=== PATIENT | male | born 1940 | race Caucasian/White ===

== ENCOUNTER 2017-03-21 19:00 | Observation (INO) | payer OTHER, MEDICARE ==
[~2017-03-21] VITALS: Ht 167.6 cm; Wt 70.3 kg
--- NOTE | 2017-03-21 19:08 | NUR ---
76 YEAR OLD MALE BIBA FROM HOME AFTER EPISODE OF WEAKNESS TRYING TO GET INTO BED. PT REPORTS HISTORY OF TIA WITH RIGHT SIDED WEAKNESS. PT DENIES FALL STATES HE LOWERED HIMSELF NEXT TO THE BED, DENIES HEADSTRIKE, REPORTS TAKING PLAVIX DAILY AFTER TIA. PT ARRIVES TO ED ALERT AND ORIENTED X3 WITH CLEAR SPEECH. PLACED ON CM NOTED TO BE NSR IN THE 80'S.
--- NOTE | 2017-03-21 19:28 | ED GENERAL ADULT ---
History of Present Illness General Chief Complaint: Syncope and Near-Syncope Stated Complaint: BIBA NEAR SYCOPE Source: patient Exam Limitations: no limitations Vital Signs & Intake/Output Vital Signs & Intake/Output Vital Signs Date Time Temp Pulse Resp B/P B/P Pulse O2 O2 Flow FiO2 Mean Ox Delivery Rate 03/23 0016 97.9 62 20 122/74 92 Room Air 03/22 1719 98.0 65 18 138/80 93 03/22 1316 68 166/90 03/22 1200 98.3 68 19 166/90 93 Room Air ED Intake and Output 03/23 0000 03/22 1200 Intake Total 1160 250 Output Total 800 100 Balance 360 150 Intake, IV 0 Intake, Oral 1160 250 Number 1 0 Bowel Movements Output, Urine 800 100 Triage Note: 76 YEAR OLD MALE BREONNA FROM HOME AFTER EPISODE OF WEAKNESS TRYING TO GET INTO BED. PT REPORTS HISTORY OF TIA WITH RIGHT SIDED WEAKNESS. PT DENIES FALL STATES HE LOWERED HIMSELF NEXT TO THE BED, DENIES HEADSTRIKE, REPORTS TAKING PLAVIX DAILY AFTER TIA. PT ARRIVES TO ED ALERT AND ORIENTED X3 WITH CLEAR SPEECH. PLACED ON CM NOTED TO BE NSR IN THE 80'S. Triage Nurses Notes Reviewed? yes Onset: Just prior to arrival Duration: gone now Timing: remote history Injury Environment: home Severity: moderate No Modifying Factors: none HPI: Patient is a 76-year-old male with history of atrial fibrillation, TIA presenting to the emergency department with chief complaint of sudden onset of weakness of the right arm and right leg that happened after he woke up from a nap this evening around 5 PM. He reports as soon as he noticed that his arm and leg were weak he decided to call the ambulance for evaluation at the hospital. Patient denies any shortness of breath chest pain or palpitations during this episode. No visual changes. He does report weakness to the right leg and right upper extremity. He was unable to ambulate. History of similar symptoms in the past and he felt like he was having a stroke. Denies any nausea or vomiting. No fevers or chills. No recent illness. Denies any recent change in medications. Patient does not take any daily aspirin but does take Plavix daily. Denies any abdominal pain. Denies any urinary incontinence or retention. Has been feeling well otherwise. Reports that symptoms resolved prior to arrival to the hospital. Symptoms lasted about 45 minutes to an hour. Denies any trouble swallowing. No trouble speaking. (ANNE ALTMAN) Allergies Coded Allergies: Alpha 2 Adrenergic Agonist (kidney issues 03/21/17) Reconcile Medications Acetaminophen (Acetaminophen ER) 650 MG TABLET.ER 1 TAB PO PRN PAIN (Reported ) Aspirin (Ecotrin*) 81 MG TABLET.DR 1 TAB PO DAILY STROKE PREVENTION Atorvastatin Calcium 20 MG TABLET 1 TAB PO DAILY CHOLESTEROL (Reported) Cholecalciferol (Vitamin D3) (Vitamin D) (Unknown Strength) TABLET (Unknown Dose) PO DAILY SUPPLEMENT (Reported) Citalopram Hydrobromide (Citalopram HBr) 10 MG TABLET 1 TAB PO DAILY MENTAL HEALTH (Reported) Clopidogrel Bisulfate (Clopidogrel) 75 MG TABLET 1 TAB PO DAILY BLOOD THINNER (Reported) Dutasteride (Avodart) 0.5 MG CAPSULE 1 CAP PO DAILY PROSTATE (Reported) Folic Acid 1 MG TABLET 1 TAB PO DAILY SUPPLEMENT (Reported) Losartan Potassium 25 MG TABLET 1 TAB PO DAILY BP (Reported) Pantoprazole Sodium 40 MG TABLET.DR 1 TAB PO DAILY GI (Reported) Solifenacin Succinate (Vesicare) 10 MG TABLET 1 TAB PO DAILY BLADDER ( Reported) Terazosin HCl 1 MG CAPSULE 1 CAP PO QPM PROSTATE (Reported) Vitamin B Complex (B Complete) 1 EACH TABLET 1 TAB PO DAILY SUPPLEMENT ( Reported) (NICK VARGAS,GOLDEN Cesar) Past History Travel History Traveled to [place] past 21 day No Medical History Any Pertinent Medical History? see below for history Cardiovascular: hypertension, hyperlipidemia Gastrointestinal: GERD Surgical History Surgical History: non-contributory Psychosocial History What is your primary language Estonian Tobacco Use: Never used Family History Hx Contributory? No (ANNE ALTMAN) Review of Systems Review of Systems Constitutional: Reports: weakness. Comments Review of systems: See HPI, All other systems negative. Constitutional, no chills fever or weight loss HEENT: No visual changes no sore throat no congestion Cardiovascular: No chest pain ,palpitation , orthopnea or ankle swelling Skin, no jaundice no rashes Respiratory: No dyspnea cough sputum or hemoptysis GI: No nausea no vomiting : No dysuria No hematuria Muscle skeletal: no back pain, no neck pain, Neurologic: No numbness no confusion NO LEWIS Psych: No stress anxiety or depression,. Heme/endocrine: No bruising no bleeding no polyuria or polydipsia Immunology: No splenectomy or history of AIDS (ANNE ALTMAN) Physical Exam Physical Exam General Appearance: well developed/nourished, no apparent distress, alert, awake , comfortable Comments: Well-developed well-nourished person in no acute distress HEENT: Normal EENT exam, extraocular motion intact, no nystagmus. Pupils equally round and reactive to light and accommodation. Nose is atraumatic. External auditory canal and Tympanic membranes clear. Pharynx normal. No swelling or edema. No neglect noted. Neck: Supple, no lymphadenopathy, normal range of motion without pain or tenderness Back: Nontender, no CVA tenderness. Full range of motion Cardiovascular: Regular rate and rhythms no murmurs rubs or gallops, normal JVP. Unable to appreciate any carotid bruits on auscultation. Respiratory: Chest nontender. No respiratory distress.breath sounds clear to auscultation bilaterally Abdomen: Soft, nontender nondistended, no appreciable organomegaly. Normal bowel sounds. No ascites Extremity: No edema, no calf tenderness to palpation, normal and equal pulses. Full range of motion of upper and lower extremities without difficulties or pain. Link Machine Operator strength is equal and symmetric bilaterally. Muscular strength is 5 out of 5 in upper and lower extremities. No arm drift noted. Neuro: Alert oriented x3, motor sensory normal, cranial nerves II through XII grossly intact. Cerebellar testing is unremarkable. Finger to nose testing unremarkable. Rapid alternating hand movements unremarkable. Patellar reflexes are 2+ bilaterally. Skin: No appreciable rash on exposed skin, skin is warm and dry. Psych: Mood and affect is normal, memory and judgment is normal. Core Measures ACS in differential dx? Yes CVA/TIA Diagnosis: Yes NIH Stroke Scale: Total 0 Severe Sepsis Present: No Septic Shock Present: No (ANNE ALTMAN) Progress Differential Diagnoses I considered the following diagnoses in my evaluation of the patient: TIA, CVA, electrolyte abnormality, ACS, intracranial hemorrhage, hypoglycemia, hyperglycemia Plan of Care: Orders Procedure Date/time Status House Staff 03/23 0813 Active BASIC ELECTROLYTES PLUS BUN&CR 03/23 0600 Complete ELECTROENCEPHALOGRAM 03/22 1506 Active Theraputic Activities 15 Min 03/22 UNK Complete MOBILITY D/C STATUS 03/22 UNK Complete MOBILITY GOAL STATUS 03/22 UNK Complete MOBILITY CURRENT STATUS 03/22 UNK Complete Gait Training, 15 Min 03/22 UNK Complete PT EVAL LOW COMPLEX 20 MIN 03/22 UNK Complete Anticipated Discharge 03/22 UNK Active Current Medications Sig/Akhil Start time Last Medication Dose Stop Time Status Admin Aspirin 81 MG DAILY 03/23 0700 AC 03/23 (Aspirin) 0756 Doxazosin Mesylate 0.5 MG AT BEDTIME 03/22 2200 AC 03/22 (Cardura) 2048 Acetaminophen 650 MG Q6P PRN 03/22 1330 AC 03/22 (Tylenol) 1329 Omeprazole 40 MG DAILY AC 03/22 1320 AC 03/23 (Prilosec) 0627 Cholecalciferol 2,000 IU DAILY 03/22 1000 AC 03/22 (Vitamin D) 1316 Citalopram 10 MG DAILY 03/22 1000 AC 03/22 Hydrobromide 1316 (Celexa) Clopidogrel Bisulfate 75 MG DAILY 03/22 1000 AC 03/22 (Plavix) 1316 Folic Acid 1 MG DAILY 03/22 1000 AC 03/22 (Folic Acid) 1316 Losartan Potassium 25 MG DAILY 03/22 1000 AC 03/22 (Cozaar) 1316 Oxybutynin Chloride 5 MG DAILY 03/22 1000 AC 03/22 (Ditropan) 1315 Heparin Sodium 5,000 UNIT Q8 03/22 0600 AC 03/23 (Porcine) 0627 Atorvastatin Calcium 80 MG 1700 03/22 0045 AC 03/22 (Lipitor) 1645 Laboratory Tests 03/23/17 0630: Anion Gap 8, Estimated GFR 37 L, BUN/Creatinine Ratio 15.6 Diagnostic Imaging: Viewed by Me: CT Scan. Discussed w/RAD: CT Scan. Radiology Impression: PATIENT: MARY RAYMOND PRESENT AGE: 76 PATIENT ACCOUNT NO: [id number] : 38 LOCATION: [facility] ORDERING PHYSICIAN: ANNE JIMENEZ SERVICE DATE: 03/21/17 EXAM TYPE: CAT - CT HEAD WO IV CONTRAST EXAMINATION: CT HEAD WITHOUT CONTRAST CLINICAL INFORMATION: Sudden onset right-sided weakness. COMPARISON: None. TECHNIQUE: Contiguous axial imaging was performed from the skull base to vertex without intravenous contrast. DLP: 399 mGy-cm. FINDINGS: The study is motion limited. There is no evidence of acute intracranial hemorrhage or territorial infarction. No abnormal mass effect or midline shift is seen. Landa to white matter differentiation is well preserved. No extra-axial fluid collections are identified. No hydrocephalus. Proportional prominence of the ventricles and sulcal spaces is consistent with mild volume loss. There is no abnormal attenuation within the brain parenchyma. The osseous structures and soft tissues are normal. The mastoid air cells and visualized portions of the paranasal sinuses are well aerated. IMPRESSION: No acute intracranial pathology. Mild volume loss DICTATED BY: GENNY VARGAS,CARLOS DATE/TIME DICTATED:03/21/172018 TEACHING MANAGER:AMRITA DATE/TIME TRANSCRIBED:03/21/172018 CONFIDENTIAL, DO NOT COPY WITHOUT APPROPRIATE AUTHORIZATION. CXR Impression: PATIENT: MARY RAYMOND PRESENT AGE: 76 PATIENT ACCOUNT NO: [id number] : 38 LOCATION: [facility] ORDERING PHYSICIAN: ANNE JIMENEZ SERVICE DATE: 03/21/17 EXAM TYPE: RAD - XRY- PORTABLE CHEST XRAY EXAMINATION: XR PORTABLE CHEST CLINICAL INFORMATION: Weakness. COMPARISON: 09/25/2013 TECHNIQUE: Portable frontal view of the chest was obtained. FINDINGS: Cardiac leads overlie the chest. The lungs are well expanded. Minimal atelectasis at the left base. No pleural effusion or dense consolidation. No pneumothorax. The cardiomediastinal silhouette is unchanged, with a calcified aorta. IMPRESSION: Minimal left basilar atelectasis. Otherwise clear lungs. DICTATED BY: GENNY VARGAS,CARLOS DATE/TIME DICTATED:03/21/172046 Initial ED EKG: ATRIAL FIBRILLATION AT 82 BPM Prior EKG: changed (HAS HX OF AFIB) Comments: PT will be admitted for telemetry observation for TIA rule out CVA. Patient will need MRI in the morning. Asymptomatic at this time still. Patient on Plavix. Holding aspirin dose at this time. patient passed his swallow study. Able to sip then liquids without choking or gagging. (ALISE JIMENEZ,ANNE) Comments: 03/21/2017 10:09:46 PM patient's case discussed by me with Dr. Christine. (NICK VARGAS,GOLDEN Cesar) Departure Departure Time of Disposition: 2237 Condition: Stable Referrals: MICKIE VARGAS,DEANDRA Gary (PCP/Family) Departure Forms: Customer Survey General Discharge Information (ANNE ALTMAN) Departure Disposition: STILL A PATIENT Clinical Impression Primary Impression: TIA (transient ischemic attack) Qualifiers: Transient cerebral ischemia type: unspecified Qualified Code: G45.9 - Transient cerebral ischemic attack, unspecified Prescriptions: Current Visit Scripts Aspirin (Ecotrin*) 1 TAB PO DAILY #30 TAB Observation Note Spoke With: ASHLEY ANTUNEZ MD Physician Advisor Notified: GOLDEN ALEXANDRA DO Place Patient In: Non-ED OBS Care Area Rationale for Observation: My rational for observation is as follows this patient appears to have suffered at least a TIA if not a CVA. He states he is having right sided weakness that resulted in a fall prior to arrival. I feel this makes this patient a poor candidate for outpatient management, to place him at high risk of falling with subsequent injury. I feel he requires hospitalization to investigate reversible causes of his TIA including carotid disease and cardioembolic phenomenon. To this regard the patient will require continuous cardiac monitoring for the possibility of dysrhythmia such as atrial fibrillation/flutter. In addition I feel this patient should have modification of his medications and consultation by a neurologist.. PA/TESTING PROJECTS ADMINISTRATOR Co-Sign Statement Statement: ED Attending supervision documentation- [X] I saw and evaluated the patient. I have also reviewed all the pertinent lab results and diagnostic results. I agree with the findings and the plan of care as documented in the PA's/TESTING PROJECTS ADMINISTRATOR's documentation. [] I have reviewed the ED Record and agree with the PA's/TESTING PROJECTS ADMINISTRATOR's documentation. [] Additions or exceptions (if any) to the PAs/TESTING PROJECTS ADMINISTRATOR's note and plan are summarized below: [] (NICK VARGAS,GOLDEN Cesar) Critical Care Note Critical Care Note Critical Care Time: 30-74 min (ANNE ALTMAN)
--- NOTE | 2017-03-21 19:35 | NUR ---
IV ACCESS ESTABLISHED BY MARCIO PRESSLEY #20 , LABS DRAWN ADN SENT (SST, FUNK, LAV, BLUE)
[2017-03-21 19:44] LABS: ABSOLUTE BASOPHIL COUNT 0.1 /CUMM (0.0-0.2); ABSOLUTE EOSINOPHIL COUNT 0.5 /CUMM (0.0-0.7); ABSOLUTE GRANULOCYTE CT 5.9 /CUMM (1.4-6.5); ABSOLUTE LYMPH COUNT 1.1 /CUMM (1.2-3.4); ABSOLUTE MONOCYTE COUNT 0.8 /CUMM (0.10-0.60); BASOPHIL % 0.9 % (0.0-2.0); EOSINOPHIL % 5.9 % (0-5); GRANULOCYTE % 70.6 % (42.2-75.2); MEAN CORPUSCULAR HGB 29.4 PG (27.0-31.0); MEAN CORPUSCULAR HGB CONC 33.1 G/DL (33.0-37.0); MEAN CORPUSCULAR VOLUME 88.8 FL (80.0-94.0); MEAN PLATELET VOLUME 8.5 FL (7.4-10.4); PLATELET COUNT 210 /CUMM (130-400); RBC DISTRIBUTION WIDTH 13.9 % (11.5-14.5); RED BLOOD CELL CT 4.39 /CUMM (4.70-6.10); WHITE BLOOD CELL COUNT 8.4 /CUMM (4.8-10.8)
[2017-03-21 19:54] LABS: PT 11.2 SEC (9.4-12.5); PTT 29 SEC (25-37)
--- NOTE | 2017-03-21 20:02 | NUR ---
PT TO CT SCAN VIA STRETCHER
--- NOTE | 2017-03-21 20:23 | CT SCAN REPORT ---
EXAMINATION: CT HEAD WITHOUT CONTRAST CLINICAL INFORMATION: Sudden onset right-sided weakness. COMPARISON: None. TECHNIQUE: Contiguous axial imaging was performed from the skull base to vertex without intravenous contrast. DLP: 399 mGy-cm. FINDINGS: The study is motion limited. There is no evidence of acute intracranial hemorrhage or territorial infarction. No abnormal mass effect or midline shift is seen. Landa to white matter differentiation is well preserved. No extra-axial fluid collections are identified. No hydrocephalus. Proportional prominence of the ventricles and sulcal spaces is consistent with mild volume loss. There is no abnormal attenuation within the brain parenchyma. The osseous structures and soft tissues are normal. The mastoid air cells and visualized portions of the paranasal sinuses are well aerated. IMPRESSION: No acute intracranial pathology. Mild volume loss
--- NOTE | 2017-03-21 20:53 | RADIOLOGY REPORT ---
EXAMINATION: XR PORTABLE CHEST CLINICAL INFORMATION: Weakness. COMPARISON: 09/25/2013 TECHNIQUE: Portable frontal view of the chest was obtained. FINDINGS: Cardiac leads overlie the chest. The lungs are well expanded. Minimal atelectasis at the left base. No pleural effusion or dense consolidation. No pneumothorax. The cardiomediastinal silhouette is unchanged, with a calcified aorta. IMPRESSION: Minimal left basilar atelectasis. Otherwise clear lungs.
--- NOTE | 2017-03-21 20:57 | NUR ---
DR ROMERO IN FOR EVAL
[2017-03-21] MEDS ORDERED: ATORVASTATIN CA20 M1 PO (21:09)
[2017-03-21] MEDS ORDERED: LEVOTHYROXINE50 MCG PO (21:09)
[2017-03-21] MEDS ORDERED: VESICARE10 MG PO (21:09)
[2017-03-21] MEDS ORDERED: CITALOPRAM HBR10 MG PO (21:09)
[2017-03-21] MEDS ORDERED: FOLIC ACID1 M1 PO (21:10)
[2017-03-21] MEDS ORDERED: CLOPIDOGREL75 M1 PO (21:10)
[2017-03-21] MEDS ORDERED: PANTOPRAZOLE SO40 M1 PO (21:10)
[2017-03-21] MEDS ORDERED: AVODART0.5 M1 PO (21:11)
[2017-03-21] MEDS ORDERED: LOSARTAN POTASS25 M1 PO (21:11)
[2017-03-21] MEDS ORDERED: TERAZOSIN HCL1 M1 PO (21:11)
[2017-03-21] MEDS ORDERED: VITAMIN D2000 UNI1 PO (21:11)
[2017-03-21] MEDS ORDERED: B COMPLETE1 EACH PO (21:12)
[2017-03-21] MEDS ORDERED: ACETAMINOPHEN650 M3 PO (21:12)
--- NOTE | 2017-03-21 22:07 | NUR ---
PT RESTING IN RM WITH RR, PLAYING ON CELL PHONE, WILL CONTINUE TO MONITOR.
--- NOTE | 2017-03-21 23:07 | History & Physical ---
DEIDRALucaKHOIBELIA 03/21/17 8686: General Information and HPI MD Statement: I have seen and personally examined MARY RAYMOND and documented this H&P. The patient is a 76 year old M who presented with a patient stated chief complaint of [tia]. Source of Information: patient Exam Limitations: no limitations History of Present Illness: This is a 76-year-old male, previous smoker, nonalcoholic, no illicit drug abuse , past medical history of ?atrial fibrillation, TIA, hypothyroidism, hypertension,gerd was brought in by ambulance today with chief complaint of sudden onset of weakness of the right arm and leg that happened after he woke up from a nap this evening around 5 PM. He noted that his right arm and leg were weak, and when he tried to walk his right leg gave away, and he fell on the ground, he dragged himself closer to the phone, could not get up, and called the EMS who came in and brought him to the [facility]. he denied any loss of consciousness, any palpitations, loss of bowel or bladder incontinence, any abnormal movement, however he did notice that his right upper extremity and right leg were extremely weak, the weakness lasted for about 3-4 hours, when we saw the patient and weakness had improved. He denied any trouble with speech, any headache, any nausea or vomiting, any drooping of the face. He said that he takes Plavix daily instead of aspirin, and he was put on Plavix for his atrial fibrillation as well as aspirin after one episode of previous TIA. He denied any trouble swallowing and passed a bedside swallow. Allergies/Medications Allergies: Coded Allergies: Alpha 2 Adrenergic Agonist (kidney issues 03/21/17) Home Med list Acetaminophen (Acetaminophen ER) 650 MG TABLET.ER 1 TAB PO PRN PAIN (Reported ) Aspirin (Ecotrin*) 81 MG TABLET.DR 1 TAB PO DAILY STROKE PREVENTION Atorvastatin Calcium 20 MG TABLET 1 TAB PO DAILY CHOLESTEROL (Reported) Cholecalciferol (Vitamin D3) (Vitamin D) (Unknown Strength) TABLET (Unknown Dose) PO DAILY SUPPLEMENT (Reported) Citalopram Hydrobromide (Citalopram HBr) 10 MG TABLET 1 TAB PO DAILY MENTAL HEALTH (Reported) Clopidogrel Bisulfate (Plavix) 75 MG TABLET 1 TAB PO DAILY STROKE PREVENTION PLEASE TAKE FOR 7 DAYS ONLY AND THEN STOP Dutasteride (Avodart) 0.5 MG CAPSULE 1 CAP PO DAILY PROSTATE (Reported) Folic Acid 1 MG TABLET 1 TAB PO DAILY SUPPLEMENT (Reported) Losartan Potassium 25 MG TABLET 1 TAB PO DAILY BP (Reported) Pantoprazole Sodium 40 MG TABLET.DR 1 TAB PO DAILY GI (Reported) Solifenacin Succinate (Vesicare) 10 MG TABLET 1 TAB PO DAILY BLADDER ( Reported) Terazosin HCl 1 MG CAPSULE 1 CAP PO QPM PROSTATE (Reported) Vitamin B Complex (B Complete) 1 EACH TABLET 1 TAB PO DAILY SUPPLEMENT ( Reported) Compliance With Home Meds: FAIR Past History Travel History Traveled to [place] past 21 day No Medical History Cardiovascular: hypertension, hyperlipidemia Gastrointestinal: GERD Surgical History Surgical History: non-contributory Past Family/Social History Psychosocial History Where do you live? Home Who Do You Live With? spouse Primary Language: Swiss Smoking Status: Former Smoker ETOH Use: occasional use Illicit Drug Use: denies illicit drug use Functional Ability ADLs Independent: dressing, eating, toileting, bathing. Ambulation: walker IADLs Independent: shopping, housework, finances, food prep, telephone, transportation , medication admin. Review of Systems Review of Systems Constitutional: Reports: malaise, weakness. Denies: chills, diaphoresis, fever, unexplained weight loss. EENTM: Denies: blurred vision, double vision, visual changes, eye pain, eye drainage. Cardiovascular: Denies: chest pain, edema, orthopena, palpitations, peripheral edema, syncope. Respiratory: Denies: cough, hemoptysis, orthopnea, short of breath, sputum production. GI: Denies: abdominal pain, bloating, constipation, diarrhea. Genitourinary: Denies: discharge, dysuria, frequency, hematuria. Musculoskeletal: Denies: back pain, gout, joint pain, joint swelling. Skin: Denies: cysts, change in skin color, change in hair/nails, dryness. Neurological/Psychological: Reports: see HPI. Hematologic/Endocrine: Reports: no symptoms. Immunologic/Allergic: Reports: see HPI. All Other Systems: Reviewed and Negative Comments patient complained of right upper and lower extremity weakness Exam & Diagnostic Data Last 24 Hrs of Vital Signs/I&O Vital Signs Date Time Temp Pulse Resp B/P B/P Pulse O2 O2 Flow FiO2 Mean Ox Delivery Rate 03/21 2340 Room Air 03/21 2340 98.2 85 18 138/78 94 Room Air 03/21 2301 98.7 70 18 130/69 96 Nasal 2.0L Cannula 03/21 2124 97.5 87 20 123/58 97 Nasal 2.0L Cannula 03/21 1922 98 Nasal 2.0L Cannula 03/21 1902 97.2 86 18 124/60 93 Room Air Room Air Intake & Output 03/22 0800 03/22 0000 03/21 1600 Intake Total Output Total Balance Patient 70.307 kg Weight Physical Exam General Appearance Alert, Oriented X3, Cooperative, No Acute Distress Skin No Rashes, No Breakdown, No Significant Lesion Skin Temp/Moisture Exam: Cool/Dry Sepsis Skin Exam (color): Normal for Ethnicity HEENT Atraumatic, PERRLA, EOMI Neck Supple, No JVD, No thryomegaly Lymphatic no lad Cardiovascular Normal S1, Normal S2, irregularly irregular Lungs Clear to Auscultation, Normal Air Movement Abdomen Normal Bowel Sounds, Soft, No Tenderness Neurological Normal Speech, Normal Tone, Sensation Intact, Cranial Nerves 3-12 NL, Reflexes 2+, strength reduced in b/l le 3+/5 but thsi is not new, RUE strength 4+/5 and LUE strength normal. Extremities No Clubbing, No Cyanosis, No Edema, Normal Pulses Vascular Normal Pulses Last 24 Hrs of Labs/Bryce: Laboratory Tests 03/21/172029: Urine Color YEL, Urine Clarity CLEAR, Urine pH 5.5, Ur Specific [place] 1.025, Urine Protein TRACE H, Urine Ketones NEG, Urine Nitrite NEG, Urine Bilirubin NEG, Urine Urobilinogen 0.2, Ur Leukocyte Esterase NEG, Ur Microscopic SEDIMENT EXAMINED, Urine RBC RARE, Urine Bacteria FEW H, Hyaline Casts 15-25 H, Urine Hemoglobin NEG, Urine Glucose NEG 03/21/171933: Anion Gap 11, Estimated GFR 34 L, BUN/Creatinine Ratio 14.7, Glucose 111 H, Calcium 9.2, Total Bilirubin 0.7, AST 25, ALT 22, Alkaline Phosphatase 92, Troponin I 0.02, Total Protein 5.9 L, Albumin 3.3 L, Globulin 2.6, Albumin/ Globulin Ratio 1.3, TSH 0.710, Free T4 0.92, PT 11.2, INR 1.07, APTT 29, CBC w Diff NO MAN DIFF REQ, RBC 4.39 L, MCV 88.8, MCH 29.4, RDW 13.9, MPV 8.5, Gran % 70.6, Lymphocytes % 12.8 L, Monocytes % 9.8 H, Eosinophils % 5.9 H, Basophils % 0.9, Absolute Granulocytes 5.9, Absolute Lymphocytes 1.1 L, Absolute Monocytes 0.8 H, Absolute Eosinophils 0.5, Absolute Basophils 0.1, PUBS MCHC 33.1 Diagnostic Data EKG Results Atrial fibrillation, rate of 82 CXR Results X-ray showed minimal left basilar atelectasis otherwise no cardiac or pulmonary findings. Other Results Head CT was negative for any acute infarcts, mild volume loss present. Assessment/Plan Assessment: In summary this is a 76-year-old male, previous smoker, nonalcoholic, no illicit drug abuse with past medical history of atrial fibrillation and cooperative, TIA previously, hypothyroidism, hypertension, GERD who was brought in from ambulance today with chief complaint of sudden onset of weakness of the right arm and leg that appeared after he woke up after a nap at 5 PM, lasted for 3-4 hours and resolved completely without any slurring of speech, headache, chest pain, palpitations. It is worthwhile to note that patient has baseline bilateral lower extremity weakness, and now the weakness is back to baseline. Vitals on admission : temperature of 97.2, pulse of 86, blood pressure 124/60, respiration of 18, he was 93% saturating on room air, was put on 2 L nasal cannula. EKG showed atrial fibrillation at 82 bpm. Chest x-ray did not show any acute cardiopulmonary findings. CT head was negative for any acute changes. UA was negative for any infection. Relevant labs white count of 9.4, H/H of 12.9/39.0, BUN and creatinine 28/1.9 ( baseline creatinine), glucose of 111. Troponin I 0.02. Plan list along with assessment and plan. Problem #1 suspected TIA. Problem #2 history of atrial fibrillation. Problem #3 history of hypothyroidism. Problem #4 history of depression. Problem #5 history of hyperlipidemia. * Pt came in with weakness of the right upper arm and right lower leg, which resolved after few hours, there is a suspicion for TIA, patient has had previous TIA. 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 Bernal which was positive, no surgery was pursued for the closure of the shunt. He said that he also had a PATRICK previously however we do not have any records. Patient had atrial fibrillation and was initially put on aspirin but then was changed to clopidogrel. * we will admit the patient to telemetry floor for suspected TIA. * Continue monitoring vitals every shift, continue to monitor intakes and output , continue cardiac telemetry monitoring. * Atrial fibrillation rate is under control. * CT head was negative. * MRI brain in the morning to rule out any infarct. * Carotid bilateral Doppler to rule out atherosclerosis. * Patient passed bedside swallow eval. * Neurology consult in the a.m. * His blood pressure is within normal limit, no hypertension noticed, however if the blood pressure goes high we will allow permissive hypertension. * Will resume the blood pressure medications from tomorrow. * High dose statin. * Patient received one time of 325 mg aspirin. * continue clopidogrel per cardio, patient doesnt need ASA as he is on clopidogrel,pleaseclarify if he needs baby aspirin daily. * Lipid panel in am * Recheck TFT's * Ct terazosin * ct MV, folic acid as per home meds. * ct levothyroxine 0.05mcg PT is FC regular diet DVT px heparin Mild, mod, severe PP. As Ranked By This Provider Problem List: 1. TIA (transient ischemic attack) Qualifiers Transient cerebral ischemia type: unspecified Qualified Code: G45.9 - Transient cerebral ischemic attack, unspecified Core Measures/Miscellaneous Acute Coronary Syndrome ACS Diagnosis: No Cerebrovascular Accident CVA/TIA Diagnosis: Yes NIH Stroke Scale: Total 0 Date Last Known Well: 03/22/17 Time Last Known Well: 1700 Neurological S/S of CVA: Right Hemiparesis Symptom Start Date: 03/22/17 Symptom Start Time: 1700 Bedside Swallow Eval Done: Yes Result of Evaluation: Pass Antithrombotic: No AFIB: Atrial Fibrillation Aflutter: No Anticoagulant: Yes LDL Assessed Within 24 Hours: Yes Currently on Statin: Yes Rehab Needs Assessed: Medical Eval for Rehab PT Consult Ordered: Yes Congestive Heart Failure CHF Diagnosis: No Venous Thromboembolism VTE Risk Factors: Age > 40 No [facility] VTE prophylaxis d/t: No contraindications No VTE Pharm Prophylaxis d/t: No contraindications VTE Diagnosis: No VTE Type: NONE VTE Confirmed by (Test): NONE Severe Sepsis Severe Sepsis Present: No Septic Shock Septic Shock Present: No Miscellaneous Documentation Attending Case Discussed With: ASHLEY ANTUNEZ MD Primary Care Physician: DEANDRA CORADO MD Patient sees these Specialists .. Level of Patient Care: Telemetry ABHIJIT ANTUNEZ MD 03/22/17 0549: Attending Review Statement Attending Statement Attending MD Statement: examined this patient, discuss w/resident/PA/RADIOLOGY THERAPIST, agreed w/resident/PA/RADIOLOGY THERAPIST Attending Assessment/Plan: 76 yo M with h/o Afib not on AC, TIA (2003), hypothyroidism, HTN, GERD, CKD stage 3B, Ebstein's anomaly, chronic eosinophillia, is here with sudden onset right sided weakness causing him to fall without head strike or LOC. He denies slurring of speech or facial droop. No tingling or numbness. He reports that the weakness has resolved. He does have left sided sciatica pain. He also reports weakness to bilateral LE due to which he has difficulty ambulating. 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 VSS. Neuro exam: speech clear, tongue is central, no pronator drift, sensation intact, no facial droop, cranial nerves intact, power 4/5 in the RUE, 3/5 in b/l LE, reflexes 2+, finger to nose test negative, no dysdiadochokinesia. Gait not assessed. Labs: eosinophillia, BUN 28, creat 1.9, trop neg, TSH/ free T4 normal. UA neg. CT head neg. CXR: atelectasis. EKG: Afib. Echo (2003): EF 67%, impaired LV relaxation. 1. TIA, rule out CVA. Tele 23 Obs, neurochecks, continue plavix, add aspirin and high dose statin, check lipid panel, HbA1c, obtain echo, carotid doppler, MRI, Neuro and cardio consult, PT/OT eval. Rule out ACS. Of note, patient has h/o Ebstein's anomaly and had a PATRICK which showed a shunt please obtain records from Dr. Bernal's office. Patient passed bedside swallow eval. Also note, that patient was not placed on aspirin previously due to h/o melena with aspirin (per Neuro note of 2003), however patient does not recall this. Please discuss with Neuro. DVT ppx Hep SC. Full code.
--- NOTE | 2017-03-21 23:20 | NUR ---
REPORT GIVEN TO HUAN DIAMOND ON TELE, THIS RN ASKED FOR A TECH FOR TRANSPORT DUE TO CENCUS OF PT IN ED
[2017-03-21 23:40] VITALS: BP 138/78
[2017-03-22 08:00] VITALS: BP 142/80
--- NOTE | 2017-03-22 08:00 | NUR ---
PT A/OX3; NIH STROKE SCALE 0 AT THIS TIME; IV INTACT WITH SOME BLEEDING; THIS RN CHANGED THE DRESSING; ATE 50% OF BREAKFEST; DENIES PAIN; THIS RN GAVE REPORT TO HUAN DE DIOS AT 0930.
--- NOTE | 2017-03-22 08:18 | PN- Housestaff ---
Subjective Follow-up For: tia Subjective: Seen and examined at bedside. Reports improvement in upper and lower extremity strength. No acute o/n event reported including telemetry episode. Review of Systems Constitutional: Reports: no symptoms. Objective Last 24 Hrs of Vital Signs/I&O Vital Signs Date Time Temp Pulse Resp B/P B/P Pulse O2 O2 Flow FiO2 Mean Ox Delivery Rate 03/22 1719 98.0 65 18 138/80 93 03/22 1316 68 166/90 03/22 1200 98.3 68 19 166/90 93 Room Air 03/22 0800 98.6 62 18 142/80 93 Room Air 03/21 2340 Room Air 03/21 2340 98.2 85 18 138/78 94 Room Air 03/21 2301 98.7 70 18 130/69 96 Nasal 2.0L Cannula 03/21 2124 97.5 87 20 123/58 97 Nasal 2.0L Cannula Intake & Output 03/22 1600 03/22 0800 03/22 0000 Intake Total 560 250 Output Total 100 Balance 560 150 Intake, IV 0 Intake, Oral 560 250 Number 0 Bowel Movements Output, Urine 100 Patient 70.307 kg Weight Physical Exam General Appearance: Alert, Oriented X3, Cooperative Other Physical Findings: Skin No Rashes, No Breakdown, No Significant Lesion Skin Temp/Moisture Exam: Cool/Dry Sepsis Skin Exam (color): Normal for Ethnicity HEENT Atraumatic, PERRLA, EOMI Neck Supple, No JVD, No thryomegaly Lymphatic no lad Cardiovascular Normal S1, Normal S2, irregularly irregular Lungs Clear to Auscultation, Normal Air Movement Abdomen Normal Bowel Sounds, Soft, No Tenderness Neurological Normal Speech, Normal Tone, Sensation Intact, Cranial Nerves 3-12 NL, Reflexes 2+, strength reduced in b/l le 3+/5 but thsi is not new, RUE strength 5 and LUE strength normal. Extremities No Clubbing, No Cyanosis, No Edema, Normal Pulses Vascular Normal Pulses Current Medications: Current Medications Sig/Akhil Start time Last Medication Dose Route Stop Time Status Admin Acetaminophen 500 MG Q6P PRN 03/22 1330 DC PO Acetaminophen 650 MG Q6P PRN 03/22 1330 AC 03/22 PO 1329 Aspirin 325 MG ONCE ONE 03/22 0015 DC 03/22 PO 03/22 0016 0100 Atorvastatin Calcium 20 MG DAILY 03/22 1000 DC PO Atorvastatin Calcium 80 MG 1700 03/22 0045 AC 03/22 PO 1645 Atorvastatin Calcium 80 MG DAILY 03/22 0015 DC PO Cholecalciferol 2,000 IU DAILY 03/22 1000 AC 03/22 PO 1316 Citalopram 10 MG DAILY 03/22 1000 AC 03/22 Hydrobromide PO 1316 Clopidogrel Bisulfate 75 MG DAILY 03/22 1000 AC 03/22 PO 1316 Doxazosin Mesylate 0.5 MG AT BEDTIME 03/22 2200 AC PO Doxazosin Mesylate 1 MG DAILY 03/22 1000 DC PO Folic Acid 1 MG DAILY 03/22 1000 AC 03/22 PO 1316 Heparin Sodium 5,000 UNIT Q8 03/22 0600 AC 03/22 (Porcine) SC 1320 Levothyroxine Sodium 0.05 MG DAILY AC 03/22 0700 DC PO Losartan Potassium 25 MG DAILY 03/22 1000 AC 03/22 PO 1316 Omeprazole 40 MG DAILY AC 03/22 1320 AC 03/22 PO 1329 Oxybutynin Chloride 5 MG DAILY 03/22 1000 AC 03/22 PO 1315 Last 24 Hrs of Lab/Bryce Results Last 24 Hrs of Labs/Mics: Laboratory Tests 03/22/17 0630: Anion Gap 9, Estimated GFR 34 L, BUN/Creatinine Ratio 15.3, Triglycerides 117, Cholesterol 139, LDL Cholesterol, Calc 77, HDL Cholesterol 39 L, Cholesterol/ HDL Ratio 4, CBC w Diff NO MAN DIFF REQ, RBC 3.92 L, MCV 89.6, MCH 29.8, RDW 13.9, MPV 9.1, Gran % 59.7, Lymphocytes % 18.9 L, Monocytes % 10.2 H, Eosinophils % 10.6 H, Basophils % 0.6, Absolute Granulocytes 4.8, Absolute Lymphocytes 1.5, Absolute Monocytes 0.8 H, Absolute Eosinophils 0.9, Absolute Basophils 0, PUBS MCHC 33.3 03/21/17 2030: Urine Color YEL, Urine Clarity CLEAR, Urine pH 5.5, Ur Specific [place] 1.025, Urine Protein TRACE H, Urine Ketones NEG, Urine Nitrite NEG, Urine Bilirubin NEG, Urine Urobilinogen 0.2, Ur Leukocyte Esterase NEG, Ur Microscopic SEDIMENT EXAMINED, Urine RBC RARE, Urine Bacteria FEW H, Hyaline Casts 15-25 H, Urine Hemoglobin NEG, Urine Glucose NEG Assessment/Plan Assessment: This is a 76-year-old male, previous smoker, nonalcoholic, no illicit drug abuse with past medical history of atrial fibrillation and cooperative, TIA previously , hypothyroidism, hypertension, GERD who was brought in from ambulance today with chief complaint of sudden onset of weakness of the right arm and leg that appeared after he woke up after a nap at 5 PM, lasted for 3-4 hours and resolved completely without any slurring of speech, headache, chest pain, palpitations. It is worthwhile to note that patient has baseline bilateral lower extremity weakness, and now the weakness is back to baseline. Vitals on admission : temperature of 97.2, pulse of 86, blood pressure 124/60, respiration of 18, he was 93% saturating on room air, was put on 2 L nasal cannula. EKG showed atrial fibrillation at 82 bpm. Chest x-ray did not show any acute cardiopulmonary findings. CT head was negative for any acute changes. UA was negative for any infection. Relevant labs white count of 9.4, H/H of 12.9/39.0, BUN and creatinine 28/1.9 ( baseline creatinine), glucose of 111. Troponin I 0.02. Problem #1 suspected TIA. Problem #2 history of atrial fibrillation. Problem #3 history of hypothyroidism. Problem #4 history of depression. Problem #5 history of hyperlipidemia. Plan Awaiitn neuro input and EEG report to rule out focal seizures. Carotid duppler and CT unremarkable, MRI was not feasible due to kyphotic posture of patient and increased acid reflux, . Pt is medically optimized with high dose statin, dual antiplatelt therapy. Confirmed with PCP and Dr Bernal that pt did not have a hx of a fib. EKG is uneqivocal but does not show afib, also awaiitng echo results.. Will continue all his chronic meds from home. Anticipated discharge tomorrow morning. Problem List: 1. TIA (transient ischemic attack) Pain Ratin Pain Location: [facility] Pain Goal: Remain pain free Pain Plan: PER PAIN PATHWAY Tomorrow's Labs & Rationales: BEP
[2017-03-22 08:23] LABS: ABSOLUTE BASOPHIL COUNT 0 /CUMM (0.0-0.2); ABSOLUTE EOSINOPHIL COUNT 0.9 /CUMM (0.0-0.7); ABSOLUTE GRANULOCYTE CT 4.8 /CUMM (1.4-6.5); ABSOLUTE LYMPH COUNT 1.5 /CUMM (1.2-3.4); ABSOLUTE MONOCYTE COUNT 0.8 /CUMM (0.10-0.60); BASOPHIL % 0.6 % (0.0-2.0); EOSINOPHIL % 10.6 % (0-5); GRANULOCYTE % 59.7 % (42.2-75.2); HEMATOCRIT 35.1 % (42-52); MEAN CORPUSCULAR HGB 29.8 PG (27.0-31.0); MEAN CORPUSCULAR HGB CONC 33.3 G/DL (33.0-37.0); MEAN CORPUSCULAR VOLUME 89.6 FL (80.0-94.0); MEAN PLATELET VOLUME 9.1 FL (7.4-10.4); PLATELET COUNT 186 /CUMM (130-400); RBC DISTRIBUTION WIDTH 13.9 % (11.5-14.5); RED BLOOD CELL CT 3.92 /CUMM (4.70-6.10); WHITE BLOOD CELL COUNT 8.1 /CUMM (4.8-10.8)
--- NOTE | 2017-03-22 10:10 | NUR ---
TO MRI VIA WHEELCHAIR; ALERT ORIENTED X3; NO COMPLAINTS
--- NOTE | 2017-03-22 11:34 | NUR ---
REPORTED BY MAIL HANDLERS SUPERVISOR PATIENT UNABLE TO TOLERATE LAYING FLAT SECONDARY TO SPINE AND GERD. DR ORTIZ NOTIFIED. PATIENT RETURNED, PLACED BACK ON MONITOR. CALL ROMERO IN REACH
--- NOTE | 2017-03-22 11:41 | Cons- Cardiology ---
General Information and HPI Consulting Request Date of Consult: 03/22/17 Requested By: ROMEO ONEAL MD Reason for Consult: Atrial fibrillation/TIA Source of Information: patient, old records History of Present Illness: This is a 76-year-old male, previous smoker, nonalcoholic, no illicit drug abuse , past medical history of atrial fibrillation on clopidogrel, TIA, hypothyroidism, hypertension,gerd was brought in by ambulance today with chief complaint of sudden onset of weakness of the right arm and leg that happened after he woke up from a nap this evening around 5 PM. The patient was seen by his PMD Dr Moreno earlier in the day. According to Dr. Moreno , the patient was fine at that time and the patient confirms this. Also, per Dr. Moreno, the patient was in a regular rhythm at that tinme and all of his prior ECGs have shown NSR with PACs and he knows of no history of prior atrial fibrillation. he denied any loss of consciousness, any palpitations, loss of bowel or bladder come and go, any abnormal movement, however he did notice that his right upper extremity and right leg were extremely weak, the weakness lasted for about 3-4 hours after which when we saw the patient and weakness had improved. He denied any trouble with speech, any headache, any nausea or vomiting, any drooping of the face. He said that he takes Plavix daily instead of aspirin, and he was put on Plavix for his atrial fibrillation as well as aspirin one episode of previous TIA. He denied any trouble swallowing and passed a bedside swallow. Allergies/Medications Allergies: Coded Allergies: Alpha 2 Adrenergic Agonist (kidney issues 03/21/17) Home Med List: Acetaminophen (Acetaminophen ER) 650 MG TABLET.ER 1 TAB PO PRN PAIN (Reported ) Atorvastatin Calcium 20 MG TABLET 1 TAB PO DAILY CHOLESTEROL (Reported) Cholecalciferol (Vitamin D3) (Vitamin D) (Unknown Strength) TABLET (Unknown Dose) PO DAILY SUPPLEMENT (Reported) Citalopram Hydrobromide (Citalopram HBr) 10 MG TABLET 1 TAB PO DAILY MENTAL HEALTH (Reported) Clopidogrel Bisulfate (Clopidogrel) 75 MG TABLET 1 TAB PO DAILY BLOOD THINNER (Reported) Dutasteride (Avodart) 0.5 MG CAPSULE 1 CAP PO DAILY PROSTATE (Reported) Folic Acid 1 MG TABLET 1 TAB PO DAILY SUPPLEMENT (Reported) Losartan Potassium 25 MG TABLET 1 TAB PO DAILY BP (Reported) Pantoprazole Sodium 40 MG TABLET.DR 1 TAB PO DAILY GI (Reported) Solifenacin Succinate (Vesicare) 10 MG TABLET 1 TAB PO DAILY BLADDER ( Reported) Terazosin HCl 1 MG CAPSULE 1 CAP PO QPM PROSTATE (Reported) Vitamin B Complex (B Complete) 1 EACH TABLET 1 TAB PO DAILY SUPPLEMENT ( Reported) Current Medications: Current Medications Sig/Akhil Start time Last Medication Dose Route Stop Time Status Admin Aspirin 325 MG ONCE ONE 03/22 0015 DC 03/22 PO 03/22 0016 0100 Atorvastatin Calcium 20 MG DAILY 03/22 1000 DC PO Atorvastatin Calcium 80 MG 1700 03/22 0045 AC 03/22 PO 0100 Atorvastatin Calcium 80 MG DAILY 03/22 0015 DC PO Cholecalciferol 2,000 IU DAILY 03/22 1000 AC PO Citalopram 10 MG DAILY 03/22 1000 AC Hydrobromide PO Clopidogrel Bisulfate 75 MG DAILY 03/22 1000 AC PO Doxazosin Mesylate 0.5 MG AT BEDTIME 03/22 2200 AC PO Doxazosin Mesylate 1 MG DAILY 03/22 1000 DC PO Folic Acid 1 MG DAILY 03/22 1000 AC PO Heparin Sodium 5,000 UNIT Q8 03/22 0600 AC 03/22 (Porcine) SC 0701 Levothyroxine Sodium 0.05 MG DAILY AC 03/22 0700 DC PO Losartan Potassium 25 MG DAILY 03/22 1000 AC PO Oxybutynin Chloride 5 MG DAILY 03/22 1000 AC PO Past History Travel History Traveled to [place] past 21 day No Medical History Blood Transfusion Hx: No Neurological: NONE EENT: NONE Cardiovascular: hypertension, hyperlipidemia Respiratory: NONE Gastrointestinal: GERD Hepatic: NONE Renal: chronic kidney disease Musculoskeletal: NONE Psychiatric: NONE Endocrine: hypothyroidism Blood Disorders: NONE Cancer(s): NONE 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 Home Who Do You Live With? spouse Primary Language: Setswana Smoking Status: Former Smoker ETOH Use: occasional use Illicit Drug Use: denies illicit drug use Functional Ability ADLs Independent: dressing, eating, toileting, bathing. Ambulation: walker IADLs Independent: shopping, housework, finances, food prep, telephone, transportation , medication admin. Exam & Diagnostic Data Vital Signs and I&O Vital Signs Date Time Temp Pulse Resp B/P B/P Pulse O2 O2 Flow FiO2 Mean Ox Delivery Rate 03/22 800 98.6 62 18 142/80 93 Room Air 03/21 2340 Room Air 03/21 2340 98.2 85 18 138/78 94 Room Air 03/21 2301 98.7 70 18 130/69 96 Nasal 2.0L Cannula 03/21 2124 97.5 87 20 123/58 97 Nasal 2.0L Cannula 03/21 1922 98 Nasal 2.0L Cannula 03/21 1902 97.2 86 18 124/60 93 Room Air Room Air Intake & Output 03/22 0803/22 0000 03/21 1600 03/21 0803/21 0000 Intake Total 250 Output Total 100 Balance 150 Intake, IV 0 Intake, Oral 250 Number 0 Bowel Movements Output, Urine 100 Patient 155 lb Weight Physical Exam: General Appearance Alert, Oriented X3, Cooperative, No Acute Distress Skin Normal HEENT Atraumatic, PERRLA, EOMI Neck Supple, No JVD, No thryomegaly Cardiovascular Normal S1, Normal S2, regular, 1/6 systolic murmur Lungs Clear to Auscultation, Normal Air Movement Abdomen Normal Bowel Sounds, Soft, No Tenderness Neurological Normal Speech, Normal Tone, Sensation Intact, Cranial Nerves 3-12 NL, Reflexes 2+, strength reduced in b/l le 3+/5 but thsi is not new, RUE strength 4+/5 and LUE strength normal. Extremities No Clubbing, No Cyanosis, No Edema, Normal Pulses Vascular Normal Pulses Labs/Bryce Results: Laboratory Tests 03/22 Chemistry Sodium (137 - 145 mmol/L) 136 L Potassium (3.5 - 5.1 mmol/L) 3.8 Chloride (98 - 107 mmol/L) 101 Carbon Dioxide (22 - 30 mmol/L) 25 Anion Gap (5 - 16) 9 BUN (9 - 20 mg/dL) 29 H Creatinine (0.7 - 1.2 mg/dL) 1.9 H Estimated GFR (>60 ml/min) 34 L BUN/Creatinine Ratio (7 - 25 %) 15.3 Triglycerides (<150 mg/dL) 117 Cholesterol (< 200 MG/DL) 139 LDL Cholesterol, Calc (65 - 129 mg/dL) 77 HDL Cholesterol (40 - 60 mg/dL) 39 L Cholesterol/HDL Ratio (0.00 - 4.88 %) 4 Hematology CBC w Diff NO MAN DIFF REQ WBC (4.8 - 10.8 /CUMM) 8.1 RBC (4.70 - 6.10 /CUMM) 3.92 L Hgb (14.0 - 18.0 G/DL) 11.7 L Hct (42 - 52 %) 35.1 L MCV (80.0 - 94.0 FL) 89.6 MCH (27.0 - 31.0 PG) 29.8 RDW (11.5 - 14.5 %) 13.9 Plt Count (130 - 400 /CUMM) 186 MPV (7.4 - 10.4 FL) 9.1 Gran % (42.2 - 75.2 %) 59.7 Lymphocytes % (20.5 - 51.1 %) 18.9 L Monocytes % (1.7 - 9.3 %) 10.2 H Eosinophils % (0 - 5 %) 10.6 H Basophils % (0.0 - 2.0 %) 0.6 Absolute Granulocytes (1.4 - 6.5 /CUMM) 4.8 Absolute Lymphocytes (1.2 - 3.4 /CUMM) 1.5 Absolute Monocytes (0.10 - 0.60 /CUMM) 0.8 H Absolute Eosinophils (0.0 - 0.7 /CUMM) 0.9 Absolute Basophils (0.0 - 0.2 /CUMM) 0 PUBS MCHC (33.0 - 37.0 G/DL) 33.3 Urines Urine Color (YEL,AMB,STR) YEL Urine Clarity (CLEAR) CLEAR Urine pH (5.0 - 8.0) 5.5 Ur Specific [place] (1.001 - 1.035) 1.025 Urine Protein (NEG,<30 MG/DL) TRACE H Urine Ketones (NEG) NEG Urine Nitrite (NEG) NEG Urine Bilirubin (NEG) NEG Urine Urobilinogen (0.1 - 1.0 EU/dl) 0.2 Ur Leukocyte Esterase (NEG) NEG Ur Microscopic SEDIMENT EXAMINED Urine RBC (0 - 5 /HPF) RARE Urine Bacteria (NEG/NONE) FEW H Hyaline Casts (0/LPF) 15-25 H Urine Hemoglobin (NEG) NEG Urine Glucose (N MG/DL) NEG 03/21 1934 Chemistry Sodium (137 - 145 mmol/L) 136 L Potassium (3.5 - 5.1 mmol/L) 4.0 Chloride (98 - 107 mmol/L) 102 Carbon Dioxide (22 - 30 mmol/L) 22 Anion Gap (5 - 16) 11 BUN (9 - 20 mg/dL) 28 H Creatinine (0.7 - 1.2 mg/dL) 1.9 H Estimated GFR (>60 ml/min) 34 L BUN/Creatinine Ratio (7 - 25 %) 14.7 Glucose (65 - 99 mg/dL) 111 H Calcium (8.4 - 10.2 mg/dL) 9.2 Total Bilirubin (0.2 - 1.3 mg/dL) 0.7 AST (17 - 59 U/L) 25 ALT (21 - 72 U/L) 22 Alkaline Phosphatase (< 127 U/L) 92 Troponin I (<0.11 ng/ml) 0.02 Total Protein (6.3 - 8.2 g/dL) 5.9 L Albumin (3.5 - 5.0 g/dL) 3.3 L Globulin (1.9 - 4.2 gm/dL) 2.6 Albumin/Globulin Ratio (1.1 - 2.2 %) 1.3 TSH (0.270 - 4.200 uIU/mL) 0.710 Free T4 (0.78 - 2.44 ng/dL) 0.92 Coagulation PT (9.4 - 12.5 SEC) 11.2 INR (0.90 - 1.17) 1.07 APTT (25 - 37 SEC) 29 Hematology CBC w Diff NO MAN DIFF REQ WBC (4.8 - 10.8 /CUMM) 8.4 RBC (4.70 - 6.10 /CUMM) 4.39 L Hgb (14.0 - 18.0 G/DL) 12.9 L Hct (42 - 52 %) 39.0 L MCV (80.0 - 94.0 FL) 88.8 MCH (27.0 - 31.0 PG) 29.4 RDW (11.5 - 14.5 %) 13.9 Plt Count (130 - 400 /CUMM) 210 MPV (7.4 - 10.4 FL) 8.5 Gran % (42.2 - 75.2 %) 70.6 Lymphocytes % (20.5 - 51.1 %) 12.8 L Monocytes % (1.7 - 9.3 %) 9.8 H Eosinophils % (0 - 5 %) 5.9 H Basophils % (0.0 - 2.0 %) 0.9 Absolute Granulocytes (1.4 - 6.5 /CUMM) 5.9 Absolute Lymphocytes (1.2 - 3.4 /CUMM) 1.1 L Absolute Monocytes (0.10 - 0.60 /CUMM) 0.8 H Absolute Eosinophils (0.0 - 0.7 /CUMM) 0.5 Absolute Basophils (0.0 - 0.2 /CUMM) 0.1 PUBS MCHC (33.0 - 37.0 G/DL) 33.1 Diagnostic Data CXR Results FINDINGS: Cardiac leads overlie the chest. The lungs are well expanded. Minimal atelectasis at the left base. No pleural effusion or dense consolidation. No pneumothorax. The cardiomediastinal silhouette is unchanged, with a calcified aorta. IMPRESSION: Minimal left basilar atelectasis. Otherwise clear lungs. Other Results Head CT: FINDINGS: The study is motion limited. There is no evidence of acute intracranial hemorrhage or territorial infarction. No abnormal mass effect or midline shift is seen. Landa to white matter differentiation is well preserved. No extra-axial fluid collections are identified. No hydrocephalus. Proportional prominence of the ventricles and sulcal spaces is consistent with mild volume loss. There is no abnormal attenuation within the brain parenchyma. The osseous structures and soft tissues are normal. The mastoid air cells and visualized portions of the paranasal sinuses are well aerated. IMPRESSION: No acute intracranial pathology. Mild volume loss Assessment/Plan Assessment/Plan Assessment: 1. TIA with history of prior TIA noted 2. Atrial fibrillation of unclear duration-I discussed the situation with the patient's primary physician Dr. Moreno today. According to Dr. Moreno, the patient was in the office yesterday. At that time, his rate was regular. The patient has not had any history of atrial fibrillation the past. He does have multiple prior ECGs which show sinus rhythm and PACs. 3. 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 -Patient's initial EKG. There is a significant amount of present. The possibility of sinus rhythm with intraventricular occipital up at school." Laboratory, there is no definite evidence of atrial fibrillation. There is frequent atrial ectopy. -In the absence of documented atrial fibrillation, I would be reluctant to institute oral anticoagulation at the present time. I will review the patient's prior outpatient Holter monitors and, if there is no documented AF over the next 24 hours, consider further outpatient monitoring with an event monitor or LINQ monitor to better exclude AF. Consult Acknowledgment - Thank you for your consult request.
[2017-03-22 12:00] VITALS: BP 166/90
--- NOTE | 2017-03-22 12:42 | ULTRASOUND REPORT ---
EXAMINATION: DUPLEX BILATERAL CAROTID ULTRASOUND CLINICAL INFORMATION: TIA COMPARISON: None. TECHNIQUE: Duplex bilateral carotid US was performed using real-time ultrasound and Doppler techniques (integrating B-mode 2D vascular images, Doppler spectral analysis and color flow Doppler imaging). These techniques were utilized to interrogate the extracranial carotid and vertebral arteries bilaterally. The degree of stenosis is based off criteria similar to NASCET. FINDINGS: 1. On the right: Plaque is present at the carotid bifurcation but velocity measurements are normal and do not suggest a stenosis of greater than 50% diameter reduction in the right ICA. Velocities in the distal ICA are slightly elevated at 174 cm/s which could be due to tortuosity. The right ECA demonstrates a mild stenosis with peak systolic velocity of under 200 cm/s. The vertebral artery is patent demonstrating antegrade flow. 2. On the left: Plaque is present at the carotid bifurcation but velocity measurements are normal and do not suggest a stenosis of greater than 50% diameter reduction in the left ICA. The left external carotid artery shows no significant stenosis. The vertebral artery is patent demonstrating antegrade flow. IMPRESSION: Plaque is present in the internal carotid arteries but velocity measurements are normal and there is no evidence to suggest a hemodynamically significant stenosis of greater than 50% diameter reduction.
--- NOTE | 2017-03-22 14:08 | PN- Att Addend ---
Attending Addendum Attending Brief Note Patient seen and examined, was feeling slightly better this morning but still had weakness in the right lower extremity. Vital Signs Date Time Temp Pulse Resp B/P B/P Pulse O2 O2 Flow FiO2 Mean Ox Delivery Rate 03/22 1316 68 166/90 03/22 1200 98.3 68 19 166/90 93 Room Air 03/22 0800 98.6 62 18 142/80 93 Room Air 03/21 2340 Room Air 03/21 2340 98.2 85 18 138/78 94 Room Air 03/21 2301 98.7 70 18 130/69 96 Nasal 2.0L Cannula 03/21 2124 97.5 87 20 123/58 97 Nasal 2.0L Cannula 03/21 1922 98 Nasal 2.0L Cannula 03/21 1902 97.2 86 18 124/60 93 Room Air Room Air on exam; aox3, nad. cv; s1,s2, irregular. resp; clear abd; soft, nt, bs+ ext; no edema. Laboratory Tests 03/22 03/21 0630 2030 Chemistry Sodium (137 - 145 mmol/L) 136 L Potassium (3.5 - 5.1 mmol/L) 3.8 Chloride (98 - 107 mmol/L) 101 Carbon Dioxide (22 - 30 mmol/L) 25 Anion Gap (5 - 16) 9 BUN (9 - 20 mg/dL) 29 H Creatinine (0.7 - 1.2 mg/dL) 1.9 H Estimated GFR (>60 ml/min) 34 L BUN/Creatinine Ratio (7 - 25 %) 15.3 Triglycerides (<150 mg/dL) 117 Cholesterol (< 200 MG/DL) 139 LDL Cholesterol, Calc (65 - 129 mg/dL) 77 HDL Cholesterol (40 - 60 mg/dL) 39 L Cholesterol/HDL Ratio (0.00 - 4.88 %) 4 Hematology CBC w Diff NO MAN DIFF REQ WBC (4.8 - 10.8 /CUMM) 8.1 RBC (4.70 - 6.10 /CUMM) 3.92 L Hgb (14.0 - 18.0 G/DL) 11.7 L Hct (42 - 52 %) 35.1 L MCV (80.0 - 94.0 FL) 89.6 MCH (27.0 - 31.0 PG) 29.8 RDW (11.5 - 14.5 %) 13.9 Plt Count (130 - 400 /CUMM) 186 MPV (7.4 - 10.4 FL) 9.1 Gran % (42.2 - 75.2 %) 59.7 Lymphocytes % (20.5 - 51.1 %) 18.9 L Monocytes % (1.7 - 9.3 %) 10.2 H Eosinophils % (0 - 5 %) 10.6 H Basophils % (0.0 - 2.0 %) 0.6 Absolute Granulocytes (1.4 - 6.5 /CUMM) 4.8 Absolute Lymphocytes (1.2 - 3.4 /CUMM) 1.5 Absolute Monocytes (0.10 - 0.60 /CUMM) 0.8 H Absolute Eosinophils (0.0 - 0.7 /CUMM) 0.9 Absolute Basophils (0.0 - 0.2 /CUMM) 0 PUBS MCHC (33.0 - 37.0 G/DL) 33.3 Urines Urine Color (YEL,AMB,STR) YEL Urine Clarity (CLEAR) CLEAR Urine pH (5.0 - 8.0) 5.5 Ur Specific [place] (1.001 - 1.035) 1.025 Urine Protein (NEG,<30 MG/DL) TRACE H Urine Ketones (NEG) NEG Urine Nitrite (NEG) NEG Urine Bilirubin (NEG) NEG Urine Urobilinogen (0.1 - 1.0 EU/dl) 0.2 Ur Leukocyte Esterase (NEG) NEG Ur Microscopic SEDIMENT EXAMINED Urine RBC (0 - 5 /HPF) RARE Urine Bacteria (NEG/NONE) FEW H Hyaline Casts (0/LPF) 15-25 H Urine Hemoglobin (NEG) NEG Urine Glucose (N MG/DL) NEG 03/21 1934 Chemistry Sodium (137 - 145 mmol/L) 136 L Potassium (3.5 - 5.1 mmol/L) 4.0 Chloride (98 - 107 mmol/L) 102 Carbon Dioxide (22 - 30 mmol/L) 22 Anion Gap (5 - 16) 11 BUN (9 - 20 mg/dL) 28 H Creatinine (0.7 - 1.2 mg/dL) 1.9 H Estimated GFR (>60 ml/min) 34 L BUN/Creatinine Ratio (7 - 25 %) 14.7 Glucose (65 - 99 mg/dL) 111 H Calcium (8.4 - 10.2 mg/dL) 9.2 Total Bilirubin (0.2 - 1.3 mg/dL) 0.7 AST (17 - 59 U/L) 25 ALT (21 - 72 U/L) 22 Alkaline Phosphatase (< 127 U/L) 92 Troponin I (<0.11 ng/ml) 0.02 Total Protein (6.3 - 8.2 g/dL) 5.9 L Albumin (3.5 - 5.0 g/dL) 3.3 L Globulin (1.9 - 4.2 gm/dL) 2.6 Albumin/Globulin Ratio (1.1 - 2.2 %) 1.3 TSH (0.270 - 4.200 uIU/mL) 0.710 Free T4 (0.78 - 2.44 ng/dL) 0.92 Coagulation PT (9.4 - 12.5 SEC) 11.2 INR (0.90 - 1.17) 1.07 APTT (25 - 37 SEC) 29 Hematology CBC w Diff NO MAN DIFF REQ WBC (4.8 - 10.8 /CUMM) 8.4 RBC (4.70 - 6.10 /CUMM) 4.39 L Hgb (14.0 - 18.0 G/DL) 12.9 L Hct (42 - 52 %) 39.0 L MCV (80.0 - 94.0 FL) 88.8 MCH (27.0 - 31.0 PG) 29.4 RDW (11.5 - 14.5 %) 13.9 Plt Count (130 - 400 /CUMM) 210 MPV (7.4 - 10.4 FL) 8.5 Gran % (42.2 - 75.2 %) 70.6 Lymphocytes % (20.5 - 51.1 %) 12.8 L Monocytes % (1.7 - 9.3 %) 9.8 H Eosinophils % (0 - 5 %) 5.9 H Basophils % (0.0 - 2.0 %) 0.9 Absolute Granulocytes (1.4 - 6.5 /CUMM) 5.9 Absolute Lymphocytes (1.2 - 3.4 /CUMM) 1.1 L Absolute Monocytes (0.10 - 0.60 /CUMM) 0.8 H Absolute Eosinophils (0.0 - 0.7 /CUMM) 0.5 Absolute Basophils (0.0 - 0.2 /CUMM) 0.1 PUBS MCHC (33.0 - 37.0 G/DL) 33.1 A/P; 76 y/o M with pmh sig for TIA, hypothyroidism, hypertension,gerd is on tele OBS wioth tia. There is a question of atrial fibrillation. EKG is not very clear. Carotid ultrasound does not show any evidence of significant stenosis. Patient unfortunately could not have an MRI done secondary to kyphosis. Neurologic evaluation is still pending. Echo results are pending. Patient has been started on statin as well as kept on Plavix. Should ask neurology if additionalantiplatelet agent is indicated. If patient does have atrial fibrillation then he will require anticoagulation. DVT px; hep sq. PT eval. will extend OBS/
--- NOTE | 2017-03-22 14:19 | PN- Student ---
Subjective Subjective: Pt was observed at the bedside lying comfortably and was alert and cooperative during the interview. He denies weakness in his right arm or leg and has no other associated symptoms to report. Objective Objective: Vitals BP 166/90 RR 19 P 68 T 98.3 Sat 93 General: Lying comfortably in his bed. NAD. 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 EOMI. PERRLA. Cardiac: Normal S1S2, no mrg. 2+ peripheral pulses. No evidence of carotid bruits. Pulm: CTA bl. Normal AP diameter. Neuro: Normal sensation and strength testing. CN III-XII intact. Results Results: Laboratory Tests 03/22/17 0630: Anion Gap 9, Estimated GFR 34 L, BUN/Creatinine Ratio 15.3, Triglycerides 117, Cholesterol 139, LDL Cholesterol, Calc 77, HDL Cholesterol 39 L, Cholesterol/ HDL Ratio 4, CBC w Diff NO MAN DIFF REQ, RBC 3.92 L, MCV 89.6, MCH 29.8, RDW 13.9, MPV 9.1, Gran % 59.7, Lymphocytes % 18.9 L, Monocytes % 10.2 H, Eosinophils % 10.6 H, Basophils % 0.6, Absolute Granulocytes 4.8, Absolute Lymphocytes 1.5, Absolute Monocytes 0.8 H, Absolute Eosinophils 0.9, Absolute Basophils 0, PUBS MCHC 33.3 03/21/17 2030: Urine Color YEL, Urine Clarity CLEAR, Urine pH 5.5, Ur Specific [place] 1.025, Urine Protein TRACE H, Urine Ketones NEG, Urine Nitrite NEG, Urine Bilirubin NEG, Urine Urobilinogen 0.2, Ur Leukocyte Esterase NEG, Ur Microscopic SEDIMENT EXAMINED, Urine RBC RARE, Urine Bacteria FEW H, Hyaline Casts 15-25 H, Urine Hemoglobin NEG, Urine Glucose NEG 03/21/17 1934: Anion Gap 11, Estimated GFR 34 L, BUN/Creatinine Ratio 14.7, Glucose 111 H, Calcium 9.2, Total Bilirubin 0.7, AST 25, ALT 22, Alkaline Phosphatase 92, Troponin I 0.02, Total Protein 5.9 L, Albumin 3.3 L, Globulin 2.6, Albumin/ Globulin Ratio 1.3, TSH 0.710, Free T4 0.92, PT 11.2, INR 1.07, APTT 29, CBC w Diff NO MAN DIFF REQ, RBC 4.39 L, MCV 88.8, MCH 29.4, RDW 13.9, MPV 8.5, Gran % 70.6, Lymphocytes % 12.8 L, Monocytes % 9.8 H, Eosinophils % 5.9 H, Basophils % 0.9, Absolute Granulocytes 5.9, Absolute Lymphocytes 1.1 L, Absolute Monocytes 0.8 H, Absolute Eosinophils 0.5, Absolute Basophils 0.1, PUBS MCHC 33.1 Assessment/Plan Assessment: Pt is a 76 yo WM nonsmoker and nonalcoholic with a PMHx of HTN, Afib, TIA, and hypothyroidism who presented to the ED with suddent onset right arm and leg weakness. His symptoms resolved spontaneously in 3-4 hours and his weakness has now returned to baseline. CT head negative for any acute infarcts EKG Afib rate of 82 CXR negative for cardiopulmonary findings UA negative Na 136 BUN/Cr 29/1.9 1. TIA Likely given sudden onset of r arm and leg weakness and spontaneous resolution of symptoms. Negative CT head rules against a stroke. Plan: W/u with MRI as it is more sensitive for infarts. Carotid doppler to investigate atherosclerotic causes of TIA. Echocardiogram to r/o heart defects leading to embolic TIA especially in the setting of Afib. Consider dual antiplatelet therapy with the addition of ASA. Begin statin therapy. 2. CKD Stage 3 Elevated Cr confirms Stage 3 CKD. Plan: Avoid nephrotoxic agents. Serial creatinine to monitor kidney function. 3. Afib Pt's initial EKG displayed rate of 82. Plan: serial EKGs to monitor for rate changes.
--- NOTE | 2017-03-22 15:45 | Cons- Neurology ---
General Information and HPI Consulting Request Date of Consult: 03/22/17 Requested By: ROMEO ONEAL MD Source of Information: patient, old records Exam Limitations: no limitations History of Present Illness: 76-year-old male admitted to hospital yesterday after event that happened in the early evening while at home and that he was alone. He noted that his right leg gave out and he fell to the ground. As this happened he also noted that the right upper extremity showed involuntary movement. He was able to crawl to the telephone and called 911. He was unable to open the door and the police was able to Pick the lock. There was no head trauma and he did not feel confused. Symptoms lasted for quite a few hours. He believes at present a house return to previous status. He is a left-handed individual. He did not develop any difficulty with speech. There was no reported headache abdominal upset. He recalls that he may have had a similar episode over 10 years ago Allergies/Medications Allergies: Coded Allergies: Alpha 2 Adrenergic Agonist (kidney issues 03/21/17) Home Med List: Acetaminophen (Acetaminophen ER) 650 MG TABLET.ER 1 TAB PO PRN PAIN (Reported ) Atorvastatin Calcium 20 MG TABLET 1 TAB PO DAILY CHOLESTEROL (Reported) Cholecalciferol (Vitamin D3) (Vitamin D) (Unknown Strength) TABLET (Unknown Dose) PO DAILY SUPPLEMENT (Reported) Citalopram Hydrobromide (Citalopram HBr) 10 MG TABLET 1 TAB PO DAILY MENTAL HEALTH (Reported) Clopidogrel Bisulfate (Clopidogrel) 75 MG TABLET 1 TAB PO DAILY BLOOD THINNER (Reported) Dutasteride (Avodart) 0.5 MG CAPSULE 1 CAP PO DAILY PROSTATE (Reported) Folic Acid 1 MG TABLET 1 TAB PO DAILY SUPPLEMENT (Reported) Losartan Potassium 25 MG TABLET 1 TAB PO DAILY BP (Reported) Pantoprazole Sodium 40 MG TABLET.DR 1 TAB PO DAILY GI (Reported) Solifenacin Succinate (Vesicare) 10 MG TABLET 1 TAB PO DAILY BLADDER ( Reported) Terazosin HCl 1 MG CAPSULE 1 CAP PO QPM PROSTATE (Reported) Vitamin B Complex (B Complete) 1 EACH TABLET 1 TAB PO DAILY SUPPLEMENT ( Reported) Current Medications: Current Medications Sig/Akhil Start time Last Medication Dose Route Stop Time Status Admin Acetaminophen 500 MG Q6P PRN 03/22 1330 DC PO Acetaminophen 650 MG Q6P PRN 03/22 1330 AC 03/22 PO 1329 Aspirin 325 MG ONCE ONE 03/22 0015 DC 03/22 PO 03/22 0016 0100 Atorvastatin Calcium 20 MG DAILY 03/22 1000 DC PO Atorvastatin Calcium 80 MG 1700 03/22 0045 AC 03/22 PO 0100 Atorvastatin Calcium 80 MG DAILY 03/22 0015 DC PO Cholecalciferol 2,000 IU DAILY 03/22 1000 AC 03/22 PO 1316 Citalopram 10 MG DAILY 03/22 1000 AC 03/22 Hydrobromide PO 1316 Clopidogrel Bisulfate 75 MG DAILY 03/22 1000 AC 03/22 PO 1316 Doxazosin Mesylate 0.5 MG AT BEDTIME 03/22 2200 AC PO Doxazosin Mesylate 1 MG DAILY 03/22 1000 DC PO Folic Acid 1 MG DAILY 03/22 1000 AC 03/22 PO 1316 Heparin Sodium 5,000 UNIT Q8 03/22 0600 AC 03/22 (Porcine) SC 1320 Levothyroxine Sodium 0.05 MG DAILY AC 03/22 0700 DC PO Losartan Potassium 25 MG DAILY 03/22 1000 AC 03/22 PO 1316 Omeprazole 40 MG DAILY AC 03/22 1320 AC 03/22 PO 1329 Oxybutynin Chloride 5 MG DAILY 03/22 1000 AC 03/22 PO 1315 Review of Systems Review of Systems: Denies headache, vertigo, diplopia, speech difficulty, dysphagia, chest pain, shortness of breath, vomiting, swelling, fever, incontinence. He usually walks with a Rollator. 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 Home Who Do You Live With? spouse Primary Language: Greenlandic Smoking Status: Former Smoker ETOH Use: occasional use Illicit Drug Use: denies illicit drug use Functional Ability ADLs Independent: dressing, eating, toileting, bathing. Ambulation: walker IADLs Independent: shopping, housework, finances, food prep, telephone, transportation , medication admin. Exam & Diagnostic Data Vital Signs and I&O Vital Signs Date Time Temp Pulse Resp B/P B/P Pulse O2 O2 Flow FiO2 Mean Ox Delivery Rate 03/22 1316 68 166/90 03/22 1200 98.3 68 19 166/90 93 Room Air 03/22 0800 98.6 62 18 142/80 93 Room Air 03/21 2340 Room Air 03/21 2340 98.2 85 18 138/78 94 Room Air 03/21 2301 98.7 70 18 130/69 96 Nasal 2.0L Cannula 03/214 97.5 87 20 123/58 97 Nasal 2.0L Cannula 03/21 1922 98 Nasal 2.0L Cannula 03/21 190 97.2 86 18 124/60 93 Room Air Room Air Intake & Output 03/22 1600 03/22 0800 03/22 0000 Intake Total 560 250 Output Total 100 Balance 560 150 Intake, IV 0 Intake, Oral 560 250 Number 0 Bowel Movements Output, Urine 100 Patient 155 lb Weight Mother had myocardial infarction Alert and oriented language functions fund of knowledge attention span concentration intact He is comfortable Heart sounds normal, no carotid bruits, distal pulses intact Extraocular movements full, but pupil asymmetric following surgery, visual mariscal intact, fundi benign, no facial weakness or facial sensory loss, palate tongue and shoulders intact, hearing mildly impaired Normal tone and strength upper and lower extremities No sensory loss to light touch or position Deep tendon reflexes 1+ bilateral Coord to functions upper extremities intact Gait assessment deferred due to absence of Rollator, Last 48 Hours of Lab Results: Laboratory Tests 03/22 Chemistry Sodium (137 - 145 mmol/L) 136 L Potassium (3.5 - 5.1 mmol/L) 3.8 Chloride (98 - 107 mmol/L) 101 Carbon Dioxide (22 - 30 mmol/L) 25 Anion Gap (5 - 16) 9 BUN (9 - 20 mg/dL) 29 H Creatinine (0.7 - 1.2 mg/dL) 1.9 H Estimated GFR (>60 ml/min) 34 L BUN/Creatinine Ratio (7 - 25 %) 15.3 Triglycerides (<150 mg/dL) 117 Cholesterol (< 200 MG/DL) 139 LDL Cholesterol, Calc (65 - 129 mg/dL) 77 HDL Cholesterol (40 - 60 mg/dL) 39 L Cholesterol/HDL Ratio (0.00 - 4.88 %) 4 Hematology CBC w Diff NO MAN DIFF REQ WBC (4.8 - 10.8 /CUMM) 8.1 RBC (4.70 - 6.10 /CUMM) 3.92 L Hgb (14.0 - 18.0 G/DL) 11.7 L Hct (42 - 52 %) 35.1 L MCV (80.0 - 94.0 FL) 89.6 MCH (27.0 - 31.0 PG) 29.8 RDW (11.5 - 14.5 %) 13.9 Plt Count (130 - 400 /CUMM) 186 MPV (7.4 - 10.4 FL) 9.1 Gran % (42.2 - 75.2 %) 59.7 Lymphocytes % (20.5 - 51.1 %) 18.9 L Monocytes % (1.7 - 9.3 %) 10.2 H Eosinophils % (0 - 5 %) 10.6 H Basophils % (0.0 - 2.0 %) 0.6 Absolute Granulocytes (1.4 - 6.5 /CUMM) 4.8 Absolute Lymphocytes (1.2 - 3.4 /CUMM) 1.5 Absolute Monocytes (0.10 - 0.60 /CUMM) 0.8 H Absolute Eosinophils (0.0 - 0.7 /CUMM) 0.9 Absolute Basophils (0.0 - 0.2 /CUMM) 0 PUBS MCHC (33.0 - 37.0 G/DL) 33.3 Urines Urine Color (YEL,AMB,STR) YEL Urine Clarity (CLEAR) CLEAR Urine pH (5.0 - 8.0) 5.5 Ur Specific [place] (1.001 - 1.035) 1.025 Urine Protein (NEG,<30 MG/DL) TRACE H Urine Ketones (NEG) NEG Urine Nitrite (NEG) NEG Urine Bilirubin (NEG) NEG Urine Urobilinogen (0.1 - 1.0 EU/dl) 0.2 Ur Leukocyte Esterase (NEG) NEG Ur Microscopic SEDIMENT EXAMINED Urine RBC (0 - 5 /HPF) RARE Urine Bacteria (NEG/NONE) FEW H Hyaline Casts (0/LPF) 15-25 H Urine Hemoglobin (NEG) NEG Urine Glucose (N MG/DL) NEG 03/21 1934 Chemistry Sodium (137 - 145 mmol/L) 136 L Potassium (3.5 - 5.1 mmol/L) 4.0 Chloride (98 - 107 mmol/L) 102 Carbon Dioxide (22 - 30 mmol/L) 22 Anion Gap (5 - 16) 11 BUN (9 - 20 mg/dL) 28 H Creatinine (0.7 - 1.2 mg/dL) 1.9 H Estimated GFR (>60 ml/min) 34 L BUN/Creatinine Ratio (7 - 25 %) 14.7 Glucose (65 - 99 mg/dL) 111 H Calcium (8.4 - 10.2 mg/dL) 9.2 Total Bilirubin (0.2 - 1.3 mg/dL) 0.7 AST (17 - 59 U/L) 25 ALT (21 - 72 U/L) 22 Alkaline Phosphatase (< 127 U/L) 92 Troponin I (<0.11 ng/ml) 0.02 Total Protein (6.3 - 8.2 g/dL) 5.9 L Albumin (3.5 - 5.0 g/dL) 3.3 L Globulin (1.9 - 4.2 gm/dL) 2.6 Albumin/Globulin Ratio (1.1 - 2.2 %) 1.3 TSH (0.270 - 4.200 uIU/mL) 0.710 Free T4 (0.78 - 2.44 ng/dL) 0.92 Coagulation PT (9.4 - 12.5 SEC) 11.2 INR (0.90 - 1.17) 1.07 APTT (25 - 37 SEC) 29 Hematology CBC w Diff NO MAN DIFF REQ WBC (4.8 - 10.8 /CUMM) 8.4 RBC (4.70 - 6.10 /CUMM) 4.39 L Hgb (14.0 - 18.0 G/DL) 12.9 L Hct (42 - 52 %) 39.0 L MCV (80.0 - 94.0 FL) 88.8 MCH (27.0 - 31.0 PG) 29.4 RDW (11.5 - 14.5 %) 13.9 Plt Count (130 - 400 /CUMM) 210 MPV (7.4 - 10.4 FL) 8.5 Gran % (42.2 - 75.2 %) 70.6 Lymphocytes % (20.5 - 51.1 %) 12.8 L Monocytes % (1.7 - 9.3 %) 9.8 H Eosinophils % (0 - 5 %) 5.9 H Basophils % (0.0 - 2.0 %) 0.9 Absolute Granulocytes (1.4 - 6.5 /CUMM) 5.9 Absolute Lymphocytes (1.2 - 3.4 /CUMM) 1.1 L Absolute Monocytes (0.10 - 0.60 /CUMM) 0.8 H Absolute Eosinophils (0.0 - 0.7 /CUMM) 0.5 Absolute Basophils (0.0 - 0.2 /CUMM) 0.1 PUBS MCHC (33.0 - 37.0 G/DL) 33.1 Imaging/Other Studies: carotid u/s: IMPRESSION: Plaque is present in the internal carotid arteries but velocity measurements are normal and there is no evidence to suggest a hemodynamically significant stenosis of greater than 50% diameter reduction. CT BRAIN: IMPRESSION: No acute intracranial pathology. Mild volume loss Assessment/Plan Assessment: Transient neurologic event, ischemia versus focal seizure Recommendations: Antiplatelet agent and statin If patient found to have atrial fibrillation, consider anticoagulation Electroencephalogram to assess for possibility of focal seizure Patient was unable to do MRI scan due to body habitus Consult Acknowledgment - Thank you for your consult request.
[2017-03-22 17:19] VITALS: BP 138/80
--- NOTE | 2017-03-22 18:25 | ELECTROENCEPHALOGRAM REPORT ---
Electroencephalogram Report Electroencephalogram Results Date of service: 03/22/17 Attending MD: ROMEO ONEAL MD Sr. Director: Jolynn Leavitt EEG Number: [id number] Test Utilizes: 10-20 system, 21 lead 18 channel digital recording Pertinent Hx/Physical/Neuro Findings/Clin Diagnosis: shaking right arm r/o seizure Inpatient Medications: Current Medications Sig/Akhil Start time Last Medication Dose Route Stop Time Status Admin Acetaminophen 500 MG Q6P PRN 03/22 1330 DC PO Acetaminophen 650 MG Q6P PRN 03/22 1330 AC 03/22 PO 1329 Aspirin 325 MG ONCE ONE 03/22 0015 DC 03/22 PO 03/22 0016 0100 Atorvastatin Calcium 20 MG DAILY 03/22 1000 DC PO Atorvastatin Calcium 80 MG 1700 03/22 0045 AC 03/22 PO 1645 Atorvastatin Calcium 80 MG DAILY 03/22 0015 DC PO Cholecalciferol 2,000 IU DAILY 03/22 1000 AC 03/22 PO 1316 Citalopram 10 MG DAILY 03/22 1000 AC 03/22 Hydrobromide PO 1316 Clopidogrel Bisulfate 75 MG DAILY 03/22 1000 AC 03/22 PO 1316 Doxazosin Mesylate 0.5 MG AT BEDTIME 03/22 2200 AC PO Doxazosin Mesylate 1 MG DAILY 03/22 1000 DC PO Folic Acid 1 MG DAILY 03/22 1000 AC 03/22 PO 1316 Heparin Sodium 5,000 UNIT Q8 03/22 0600 AC 03/22 (Porcine) SC 1320 Levothyroxine Sodium 0.05 MG DAILY AC 03/22 0700 DC PO Losartan Potassium 25 MG DAILY 03/22 1000 AC 03/22 PO 1316 Omeprazole 40 MG DAILY AC 03/22 1320 AC 03/22 PO 1329 Oxybutynin Chloride 5 MG DAILY 03/22 1000 AC 03/22 PO 1315 Interpretation: In wake state, background is 9-10 cps activity In drowsy state, background is 5-7 cps activity Photic stim: no abnormalities No focal or epileptiform activity Impression: Normal EEG in wake and drowsy states
[2017-03-23 00:16] VITALS: BP 122/74
--- NOTE | 2017-03-23 06:47 | PN- Housestaff ---
ANGEL VARGAS,PRAFUL 03/23/17 0647: Subjective Follow-up For: TIA Subjective: Seen and examined at bedside. He is a very pleasant and cooperative gentleman. He does report feeling a little bit tired today while ambulating to the bathroom but denies any new focal neurological deficit. Ulcer denies any chest pain, palpitation, increased shortness of breath, fever, chills, nausea, vomiting, vision changes, abdominal pain or dysuria. No acute telemetry events noted overnight and no acute nursing report noted. Review of Systems Constitutional: Reports: no symptoms. Objective Last 24 Hrs of Vital Signs/I&O Vital Signs Date Time Temp Pulse Resp B/P B/P Pulse O2 O2 Flow FiO2 Mean Ox Delivery Rate 03/23 0946 74 160/80 03/23 0833 97.6 61 16 161/81 94 Room Air 03/23 0016 97.9 62 20 122/74 92 Room Air 03/22 1719 98.0 65 18 138/80 93 Intake & Output 03/23 1600 03/23 0800 03/23 0000 Intake Total 250 600 Output Total 425 800 Balance -175 -200 Intake, IV 0 Intake, Oral 250 600 Number 0 1 Bowel Movements Output, Urine 425 800 Physical Exam General Appearance: Alert, Oriented X3, Cooperative Other Physical Findings: Neck Supple, No JVD, No thryomegaly Lymphatic no lad Cardiovascular Normal S1, Normal S2, irregularly irregular Lungs Clear to Auscultation, Normal Air Movement Abdomen Normal Bowel Sounds, Soft, No Tenderness Neurological Normal Speech, Normal Tone, Sensation Intact, Cranial Nerves 3-12 NL, Reflexes 2+, strength reduced in b/l le 3+/5 but thsi is not new, RUE strength 5 and LUE strength normal. Extremities No Clubbing, No Cyanosis, No Edema, Normal Pulses Vascular Normal Pulses Current Medications: Current Medications Sig/Akhil Start time Last Medication Dose Route Stop Time Status Admin Acetaminophen 650 MG Q6P PRN 03/22 1330 AC 03/22 PO 1329 Aspirin 81 MG DAILY 03/23 0700 AC 03/23 PO 0756 Atorvastatin Calcium 80 MG 1700 03/22 0045 AC 03/22 PO 1645 Cholecalciferol 2,000 IU DAILY 03/22 1000 AC 03/23 PO 0946 Citalopram 10 MG DAILY 03/22 1000 AC 03/23 Hydrobromide PO 0946 Clopidogrel Bisulfate 75 MG DAILY 03/22 1000 AC 03/23 PO 0946 Doxazosin Mesylate 0.5 MG AT BEDTIME 03/22 2200 AC 03/22 PO 2048 Folic Acid 1 MG DAILY 03/22 1000 AC 03/23 PO 0946 Heparin Sodium 5,000 UNIT Q8 03/22 0600 AC 03/23 (Porcine) SC 0627 Losartan Potassium 25 MG DAILY 03/22 1000 AC 03/23 PO 0946 Omeprazole 40 MG DAILY AC 03/22 1320 AC 03/23 PO 0627 Oxybutynin Chloride 5 MG DAILY 03/22 1000 AC 03/23 PO 0946 Patient Medication 1 ED .STK-MED ONE 03/23 1347 DC Teaching ED 03/23 1348 Potassium Chloride 20 MEQ ONCE ONE 03/23 1300 DC 03/23 PO 03/23 1301 1330 Last 24 Hrs of Lab/Bryce Results Last 24 Hrs of Labs/Mics: Laboratory Tests 03/23/17 0630: Anion Gap 8, Estimated GFR 37 L, BUN/Creatinine Ratio 15.6, Magnesium 1.4 L Assessment/Plan Assessment: This is a 76-year-old male, previous smoker, nonalcoholic, no illicit drug abuse with past medical history of atrial fibrillation and cooperative, TIA previously , hypothyroidism, hypertension, GERD who was brought in from ambulance today with chief complaint of sudden onset of weakness of the right arm and leg that appeared after he woke up after a nap at 5 PM, lasted for 3-4 hours and resolved completely without any slurring of speech, headache, chest pain, palpitations. It is worthwhile to note that patient has baseline bilateral lower extremity weakness, and now the weakness is back to baseline. Vitals on admission : temperature of 97.2, pulse of 86, blood pressure 124/60, respiration of 18, he was 93% saturating on room air, was put on 2 L nasal cannula. EKG showed atrial fibrillation at 82 bpm. Chest x-ray did not show any acute cardiopulmonary findings. CT head was negative for any acute changes. UA was negative for any infection. Relevant labs white count of 9.4, H/H of 12.9/39.0, BUN and creatinine 28/1.9 ( baseline creatinine), glucose of 111. Troponin I 0.02. Problem #1 suspected TIA. Problem #2 history of atrial fibrillation. Problem #3 history of hypothyroidism. Problem #4 history of depression. Problem #5 history of hyperlipidemia. Plan Pt is stable with no new focal neurologca deficit, his extremity weakness seems to be resolving. EEG done yesterday was negative for any focal seizures activity. Carotid doppler was also unremrkable for significant stenosis. No acute telemtry events with patient remaining in sinus rythm. Medical team contacted PCP and Dr Clements regarding antiplatelt optimization. It was decided that patient can be on dual antiplatelt therapy for 7 days (palvix and aspirin) and then remain on ASA 81 mg daily. Patient is already on a statin and is lipid panel is within goals. He will be discharged today with home PT and also was instructed to follow-up with Dr. Bernal cardiology and his regular Remicade physician within one week. Problem List: 1. TIA (transient ischemic attack) Pain Ratin Pain Location: none Pain Goal: Remain pain free Pain Plan: per pain pathway Tomorrow's Labs & Rationales: none-discharge JM VARGASROMEO 03/23/17 1349: Attending MD Review Statement Attending Statement Attending MD Statement: examined this patient, discuss w/resident/PA/AIRLINE STEWARDESS, agreed w/resident/PA/AIRLINE STEWARDESS, discussed with family, reviewed EMR data (avail), discussed with nursing, discussed with case mgmt, reviewed images, amended to note Attending Assessment/Plan: Patient seen and examined, overall doing much better. Right-sided weakness is resolved. Hemodynamics are stable. EEG performed yesterday does not show any of the mallet. Echocardiogram also normal and carotid Doppler ultrasound does not show any significant stenosis. Discussed with neurology at length. For the first 7-10 days patient be on dual antiplatelet therapy and then afterwards he will only be on a baby aspirin. I've also discussed this with Dr. Moreno (patient' s primary care doctor) Patient to follow-up with primary care doctor, cardiology Dr. Bernal as well as neurology Dr. Clements as an outpatient. He will be discharged home today with home services and home physical therapy.
[2017-03-23] MEDS ORDERED: ASPIRIN EC81 M1 PO (06:56)
--- NOTE | 2017-03-23 06:59 | Patient Discharge Instructions ---
Discharge Instructions General Discharge Information You were seen/treated for: Mini stroke Special Instructions: Please seek medical attention if you develop any new weakness,facial droop, or speech problems Please take plavix and Aspirin for 7 days and then stop the Plavix and continue the Aspirin Please follow up with your primary care within 1 week Please follow up with your painter maintenance in 1 week (Dr Kumar) Acute Coronary Syndrome Inclusion Criteria At DC or during hospital stay patient has or had the following: ACS DIAGNOSIS No Discharge Core Measures Meds if any: Prescribed or Continued at Discharge Meds if any: NOT Prescribed or Continued at Discharge Congestive Heart Failure Inclusion Criteria At DC or during hospital stay patient has or had the following: CHF DIAGNOSIS No Discharge Core Measures Meds if any: Prescribed or Continued at Discharge Meds if any: NOT Prescribed or Continued at Discharge Cerebrovascular accident Inclusion Criteria At DC or during hospital stay patient has or had the following: CVA/TIA Diagnosis Yes Discharge Core Measures Meds if any: Prescribed or Continued at Discharge Meds if any: NOT Prescribed or Continued at Discharge Venous thromboembolism Inclusion Criteria VTE Diagnosis No VTE Type NONE VTE Confirmed by (Test) NONE Discharge Core Measures - Per Current guidelines, there needs to be overlap - treatment for the first 5 days of Warfarin therapy. - If discharged on Warfarin prior to 5 days of - overlap therapy, the patient will need to be - assessed for post discharge needs including - *Post discharge parental anticoagulation - *Warfarin and/or parental anticoagulation education - *Follow up date to check INR post discharge At least 5 days overlap therapy as Inpatient No Meds if any: Prescribed or Continued at Discharge Note: Overlap Therapy is Warfarin and Anticoagulant Meds if any: NOT Prescribed or Continued at Discharge
--- NOTE | 2017-03-23 08:02 | PN- Student ---
Subjective Subjective: Pt was observed at the bedside. No o/n events reported. Pt was in high spirits and did not report any concerns about returning home. Objective Objective: Vital Signs Date Time Temp Pulse Resp B/P B/P Pulse O2 O2 Flow FiO2 Mean Ox Delivery Rate 03/23 0016 97.9 62 20 122/74 92 Room Air 03/22 1719 98.0 65 18 138/80 93 03/22 1316 68 166/90 03/22 1200 98.3 68 19 166/90 93 Room Air Intake & Output 03/23 1600 03/23 0800 03/23 0000 Intake Total 250 600 Output Total 425 800 Balance -175 -200 Intake, IV 0 Intake, Oral 250 600 Number 0 1 Bowel Movements Output, Urine 425 800 Vitals stable except RR of 20 T 97.9 P 62 RR 20 BP 122/74 Sat 92 General: Well appearing with NAD. Cardiac: abnormal EKG reported with increased atrial rate. Pulm: CTA bl. Neuro: normal strength and sensation in upper extremities. 4/5 strength in lower extremities bl. Results Results: Laboratory Tests 03/23/17 0630: Sodium Pending, Potassium Pending, Chloride Pending, Carbon Dioxide Pending, Anion Gap Pending, BUN Pending, Creatinine Pending, BUN/Creatinine Ratio Pending 03/22/17 0630: Anion Gap 9, Estimated GFR 34 L, BUN/Creatinine Ratio 15.3, Triglycerides 117, Cholesterol 139, LDL Cholesterol, Calc 77, HDL Cholesterol 39 L, Cholesterol/ HDL Ratio 4, CBC w Diff NO MAN DIFF REQ, RBC 3.92 L, MCV 89.6, MCH 29.8, RDW 13.9, MPV 9.1, Gran % 59.7, Lymphocytes % 18.9 L, Monocytes % 10.2 H, Eosinophils % 10.6 H, Basophils % 0.6, Absolute Granulocytes 4.8, Absolute Lymphocytes 1.5, Absolute Monocytes 0.8 H, Absolute Eosinophils 0.9, Absolute Basophils 0, PUBS MCHC 33.3 03/21/17 2030: Urine Color YEL, Urine Clarity CLEAR, Urine pH 5.5, Ur Specific [place] 1.025, Urine Protein TRACE H, Urine Ketones NEG, Urine Nitrite NEG, Urine Bilirubin NEG, Urine Urobilinogen 0.2, Ur Leukocyte Esterase NEG, Ur Microscopic SEDIMENT EXAMINED, Urine RBC RARE, Urine Bacteria FEW H, Hyaline Casts 15-25 H, Urine Hemoglobin NEG, Urine Glucose NEG 03/21/171933: Anion Gap 11, Estimated GFR 34 L, BUN/Creatinine Ratio 14.7, Glucose 111 H, Calcium 9.2, Total Bilirubin 0.7, AST 25, ALT 22, Alkaline Phosphatase 92, Troponin I 0.02, Total Protein 5.9 L, Albumin 3.3 L, Globulin 2.6, Albumin/ Globulin Ratio 1.3, TSH 0.710, Free T4 0.92, PT 11.2, INR 1.07, APTT 29, CBC w Diff NO MAN DIFF REQ, RBC 4.39 L, MCV 88.8, MCH 29.4, RDW 13.9, MPV 8.5, Gran % 70.6, Lymphocytes % 12.8 L, Monocytes % 9.8 H, Eosinophils % 5.9 H, Basophils % 0.9, Absolute Granulocytes 5.9, Absolute Lymphocytes 1.1 L, Absolute Monocytes 0.8 H, Absolute Eosinophils 0.5, Absolute Basophils 0.1, PUBS MCHC 33.1 UA negative for infection Na LLN Cr elevated Assessment/Plan Assessment: Pt is a 76 yo white M previous smoker and nonalcoholic with a PMHx of HTN, previous TIA, and hypothyroidism who presented with sudden onset right upper and lower extremity weakness. His Sx have resolved during his hospital stay and his strength is back to baseline. CT head and carotid doppler were negative. 1. TIA Given the course of his sx and negative findings on CT head a TIA is the most likely cause. Carotid doppler was negative which r/o carotid stenosis as the etiology. Plan: Continue dual antiplatelet therapy and high dose statin 2. abnormal EKG Confirmed with pt that he does not have a previous dx of AFib but should check with his PCP. Initial EKG on admission was abnormal but echo revealed no abnormalities. If confirmed to have AFib, this would help suggest an embolic cause of his TIA. Plan: Contact PCP to determine if there was a previous dx of AFib. Consider anticoagulation if Afib found on EKG. 3. CKD Stage III Elevated Cr confirms pt report of CKD. Plan: Continue to monitor BUN/Cr and avoid nephrotoxic agents.
[2017-03-23 08:33] VITALS: BP 161/81
--- NOTE | 2017-03-23 08:48 | ECHOCARDIOGRAM REPORT ---
MARY RAYMOND Age: 76 : 1940 Gender: M Exam Date: 03/22/2017 11:42 Exam Location: [address] Ht (in): 66 Wt (lb): 155 BSA: 1.82 BP: 142 / 80 Ordering Physician: SNOW DAVENPORT MD Referring Physician: SNOW DAVENPORT MD Technologist: Edward Carney [facility] Room Number: [id number] Indications: TIA Rhythm: Sinus Technical Quality: Poor, Technically difficult study FINDINGS Left Ventricle Normal size left ventricle. No obvious regional wall motion abnormalities. Normal left ventricular ejection fraction estimated at 60-65%. Right Ventricle Mild right ventricular dilatation. Right Atrium Mild right atrial dilatation. Left Atrium Left atrial size at the upper limits of normal. Mitral Valve Mitral valve thickened. Trace mitral regurgitation. Aortic Valve Trileaflet aortic valve. Focal thickening of the aortic valve cusps. No aortic stenosis. No aortic regurgitation. Tricuspid Valve [id number] tricuspid regurgitation. Pulmonic Valve Pulmonic valve not well visualized, grossly normal. Trace pulmonic regurgitation. Pericardium No pericardial effusion. Great Vessels Aortic root and proximal ascending aorta not well visualized, grossly normal. CONCLUSIONS 1. This was a technically difficult examination. 2. Minimal aortic sclerosis is present with no valvular stenosis or insufficiency. 3. Mitral leaflet thickening is present with minimal mitral insufficiency. 4. There is no pericardial fluid present. 5. The left ventricular chamber size and systolic function appear normal. 6. Mild enlargement of the right heart chambers is present with mild tricuspid insufficiency and no significant pulmonary hypertension. Minimal pulmonic insuffciiency is also noted. 7. 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 8. No obvious embolic sources were identified on this study. If clinically indicated, a PATRICK would better exclude potential embolic sources. Nanette Bernal M.D. (Electronically Signed) Final Date: 23 Mar 2017 08:47 MEASUREMENTS (Male / Female) Normal Values 2D ECHO LV Diastolic Diameter PLAX 5.3 cm 4.2 - 5.9 / 3.9 - 5.3 cm LV Systolic Diameter PLAX 3.4 cm 2.1 - 4.0 cm LV Fractional Shortening PLAX 35.8 % 25 - 46 % LV Ejection Fraction 2D Teich 65.0 % IVS Diastolic Thickness 0.8 cm LVPW Diastolic Thickness 0.8 cm LV Relative Wall Thickness 0.3 RV Internal Dim ED PLAX 3.1 cm 1.9 - 3.8 cm LVOT Diameter 2.1 cm Aortic Root Diameter 3.0 cm LA Systolic Diameter LX 3.5 cm 3.0 - 4.0 / 2.7 - 3.8 cm Ascending Aorta Diameter 2.9 cm DOPPLER AV Peak Velocity 108.0 cm/s AV Peak Gradient 4.7 mmHg AV Mean Velocity 72.2 cm/s AV Mean Gradient 2.0 mmHg AV Velocity Time Integral 25.0 cm LVOT Peak Velocity 72.9 cm/s LVOT Peak Gradient 2.1 mmHg LVOT Mean Velocity 44.0 cm/s LVOT Mean Gradient 1.0 mmHg LVOT Velocity Time Integral 17.2 cm LVOT Stroke Volume 59.6 cm AV Area Cont Eq vti 2.4 cm AV Area Cont Eq pk 2.3 cm MV Peak Velocity 71.7 cm/s MV Peak Gradient 2.1 mmHg MV Mean Velocity 40.3 cm/s MV Mean Gradient 1.0 mmHg Mitral E Point Velocity 43.4 cm/s Mitral A Point Velocity 52.3 cm/s Mitral E to A Ratio 0.8 MV PHT Velocity 57.0 cm/s MV Deceleration Mcintosh 81.2 cm/s MV Pressure Half Time 210.6 ms MV Area PHT 1.0 cm MV Deceleration Time 722.0 ms TR Peak Velocity 251.0 cm/s TR Peak Gradient 25.2 mmHg Right Atrial Pressure 5.0 mmHg Pulmonary Artery Systolic Pressu 30.2 mmHg Right Ventricular Systolic Press 30.2 mmHg PV Peak Velocity 109.0 cm/s PV Peak Gradient 4.8 mmHg PV Mean Velocity 67.5 cm/s PV Mean Gradient 2.0 mmHg PV Velocity Time Integral 23.3 cm LV E' Lateral Velocity 7.8 cm/s Mitral E to LV E' Lateral Ratio 5.6 LV E' Septal Velocity 6.8 cm/s Mitral E to LV E' Septal Ratio 6.4
--- NOTE | 2017-03-23 08:50 | NUR ---
Physical Therapy. Pt cleared as I with a RW yesterday w/ recommendation for HSC and f/u in OPPT as appropriate. Resident and pt today requesting home PT evaluation. Pt would be appropriate for home PT for safety evaluation.
[2017-03-23 09:46] VITALS: BP 160/80
[2017-03-23] MEDS ORDERED: PLAVIX75 M1 PO (12:55)
--- NOTE | 2017-03-23 19:09 | PN- Cardiology ---
Subjective Subjective: CLinically improved. No evidence of AF Objective Vital Signs and I&Os Vital Signs Date Time Temp Pulse Resp B/P B/P Pulse O2 O2 Flow FiO2 Mean Ox Delivery Rate 03/23 0946 74 160/80 03/23 0833 97.6 61 16 161/81 94 Room Air 03/23 0016 97.9 62 20 122/74 92 Room Air Intake & Output 03/23 1600 03/23 0800 03/23 0000 03/22 1600 03/22 0800 03/22 0000 Intake Total 250 600 560 250 Output Total 425 800 100 Balance -175 -200 560 150 Intake, IV 0 0 Intake, Oral 250 600 560 250 Number 0 1 0 Bowel Movements Output, Urine 425 800 100 Patient 155 lb Weight Current Medications: Current Medications Sig/Akhil Start time Last Medication Dose Route Stop Time Status Admin Acetaminophen 650 MG Q6P PRN 03/22 1330 DCD 03/22 PO 1329 Aspirin 81 MG DAILY 03/23 0700 DCD 03/23 PO 0756 Atorvastatin Calcium 80 MG 1700 03/22 0045 DCD 03/22 PO 1645 Cholecalciferol 2,000 IU DAILY 03/22 1000 DCD 03/23 PO 0946 Citalopram 10 MG DAILY 03/22 1000 DCD 03/23 Hydrobromide PO 0946 Clopidogrel Bisulfate 75 MG DAILY 03/22 1000 DCD 03/23 PO 0946 Doxazosin Mesylate 0.5 MG AT BEDTIME 03/22 2200 DCD 03/22 PO 2048 Folic Acid 1 MG DAILY 03/22 1000 DCD 03/23 PO 0946 Heparin Sodium 5,000 UNIT Q8 03/22 0600 DCD 03/23 (Porcine) SC 0627 Losartan Potassium 25 MG DAILY 03/22 1000 DCD 03/23 PO 0946 Omeprazole 40 MG DAILY AC 03/22 1320 DCD 03/23 PO 0627 Oxybutynin Chloride 5 MG DAILY 03/22 1000 DCD 03/23 PO 0946 Patient Medication 1 ED .STK-MED ONE 03/23 1347 DC Teaching ED 03/23 1348 Potassium Chloride 20 MEQ ONCE ONE 03/23 1300 DC 03/23 PO 03/23 1301 1330 Results Last 48 Hrs of Labs/Mics: Laboratory Tests 03/23/17 0630: Anion Gap 8, Estimated GFR 37 L, BUN/Creatinine Ratio 15.6, Magnesium 1.4 L 03/22/17 0630: Anion Gap 9, Estimated GFR 34 L, BUN/Creatinine Ratio 15.3, Triglycerides 117, Cholesterol 139, LDL Cholesterol, Calc 77, HDL Cholesterol 39 L, Cholesterol/ HDL Ratio 4, CBC w Diff NO MAN DIFF REQ, RBC 3.92 L, MCV 89.6, MCH 29.8, RDW 13.9, MPV 9.1, Gran % 59.7, Lymphocytes % 18.9 L, Monocytes % 10.2 H, Eosinophils % 10.6 H, Basophils % 0.6, Absolute Granulocytes 4.8, Absolute Lymphocytes 1.5, Absolute Monocytes 0.8 H, Absolute Eosinophils 0.9, Absolute Basophils 0, PUBS MCHC 33.3 03/21/17 2030: Urine Color YEL, Urine Clarity CLEAR, Urine pH 5.5, Ur Specific [place] 1.025, Urine Protein TRACE H, Urine Ketones NEG, Urine Nitrite NEG, Urine Bilirubin NEG, Urine Urobilinogen 0.2, Ur Leukocyte Esterase NEG, Ur Microscopic SEDIMENT EXAMINED, Urine RBC RARE, Urine Bacteria FEW H, Hyaline Casts 15-25 H, Urine Hemoglobin NEG, Urine Glucose NEG 03/21/17 1934: Anion Gap 11, Estimated GFR 34 L, BUN/Creatinine Ratio 14.7, Glucose 111 H, Calcium 9.2, Total Bilirubin 0.7, AST 25, ALT 22, Alkaline Phosphatase 92, Troponin I 0.02, Total Protein 5.9 L, Albumin 3.3 L, Globulin 2.6, Albumin/ Globulin Ratio 1.3, TSH 0.710, Free T4 0.92, PT 11.2, INR 1.07, APTT 29, CBC w Diff NO MAN DIFF REQ, RBC 4.39 L, MCV 88.8, MCH 29.4, RDW 13.9, MPV 8.5, Gran % 70.6, Lymphocytes % 12.8 L, Monocytes % 9.8 H, Eosinophils % 5.9 H, Basophils % 0.9, Absolute Granulocytes 5.9, Absolute Lymphocytes 1.1 L, Absolute Monocytes 0.8 H, Absolute Eosinophils 0.5, Absolute Basophils 0.1, PUBS MCHC 33.1 Assessment/Plan Assessment/Plan Assessment: 1. TIA with history of prior TIA noted 2. Atrial fibrillation of unclear duration-I discussed the situation with the patient's primary physician Dr. Dey today. According to Dr. Moreno, the patient was in the office yesterday. At that time, his rate was regular. The patient has not had any history of atrial fibrillation the past. He does have multiple prior ECGs which show sinus rhythm and PACs. 3. 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 No
== END 2017-03-23 15:20 | disposition home health service (06) ==
LOC: ERH 19:00 → 1NO 22:44 → ERHI 22:44 → 1NO 23:31 → ENPENDDIS 03-23 13:34 → 1NO 03-23 15:20
PROVIDERS: Internal Medicine; Physician Assistant; ADMIT Student in an Organized Health Care Education/Training Program
DX: G45.9 Transient cerebral ischemic attack, unspecified (principal); I48.91 Unspecified atrial fibrillation; Q22.5 Ebstein's anomaly; I10 Essential (primary) hypertension; E03.9 Hypothyroidism, unspecified; Z87.891 Personal history of nicotine dependence; Z79.82 Long term (current) use of aspirin
CPT/HCPCS: 36415; 81001; 82436; 93005; 93010; 93306; 95816; 96374; 96376; 97116-GP; 97161-GP; 97530-GP; G0378; G8978-GP; G8979-GP; G8980-GP; J1644; J3490

== ENCOUNTER 2018-03-15 08:57 | Inpatient (IN) | payer OTHER ==
[~2018-03-15] VITALS: Ht 162.6 cm; Wt 68.1 kg
[~2018-03-15 08:57] MED LIST: ACETAMINOPHEN650 M3 PO; ASPIRIN EC81 M1 PO; ATORVASTATIN CA20 M1 PO; AVODART0.5 M1 PO; B COMPLEX1 EACH PO; CITALOPRAM HBR10 MG PO; CLOPIDOGREL75 M1 PO; FOLIC ACID1 M1 PO; LEVOTHYROXINE50 MCG PO; LOSARTAN POTASS25 M1 PO; PANTOPRAZOLE SO40 M1 PO; PLAVIX75 M1 PO; TERAZOSIN HCL1 M1 PO; VESICARE10 MG PO; VITAMIN D2000 UNI1 PO
--- NOTE | 2018-03-15 09:21 | ED SYNCOPE COMPLAINT ---
History of Present Illness General Chief Complaint: Fall Stated Complaint: BIBA FALL Source: patient, old records, EMS Exam Limitations: no limitations Vital Signs & Intake/Output Vital Signs & Intake/Output Vital Signs Date Time Temp Pulse Resp B/P B/P Pulse O2 O2 Flow FiO2 Mean Ox Delivery Rate 03/15 1059 98.8 64 18 177/95 98 Room Air 03/15 0943 56 136/90 95 Nasal 2.0L Cannula 03/15 0910 96.9 88 22 161/90 87 Room Air Allergies Coded Allergies: Alpha 2 Adrenergic Agonist (kidney issues 03/21/17) Reconcile Medications Aspirin (Ecotrin*) 81 MG TABLET.DR 1 TAB PO DAILY STROKE PREVENTION Atorvastatin Calcium 20 MG TABLET 1 TAB PO QPM CHOLESTEROL (Reported) Cholecalciferol (Vitamin D3) (Vitamin D) 2,000 UNIT TABLET 1 TAB PO DAILY SUPPLEMENT (Reported) Citalopram Hydrobromide (Citalopram HBr) 10 MG TABLET 1 TAB PO DAILY MENTAL HEALTH (Reported) Clopidogrel Bisulfate (Plavix) 75 MG TABLET 1 TAB PO DAILY STROKE PREVENTION PLEASE TAKE FOR 7 DAYS ONLY AND THEN STOP Dutasteride (Avodart) 0.5 MG CAPSULE 1 CAP PO DAILY PROSTATE (Reported) Folic Acid 1 MG TABLET 1 TAB PO DAILY SUPPLEMENT (Reported) Losartan Potassium 25 MG TABLET 1 TAB PO DAILY BP (Reported) Pantoprazole Sodium 40 MG TABLET.DR 1 TAB PO DAILY GI (Reported) Solifenacin Succinate (Vesicare) 10 MG TABLET 1 TAB PO QPM BLADDER (Reported) Terazosin HCl 1 MG CAPSULE 1 CAP PO QPM PROSTATE (Reported) Vitamin B Complex (B Complex) 1 EACH TABLET 1 TAB PO DAILY VITAMIN SUPPORT ( Reported) Triage Note: PER EMS PT GOT UP TO BR AND ENROUTE BACK TO BED HAD A FALL, PER PT FEELING WEAK ON RT SIDE AND FELL DID NOT HIT HEAD NO LOC, PT RA SAT 87% PLACED ON O2 BY EMS NO HX OF O2 REQUIREMENT Triage Nurses Notes Reviewed? yes HPI: Patient states that on Monday he tripped and fell landing on his right side. Since then he has had been having pain to his right lateral hip into the right buttocks. The pain increases with ambulation. Since the fall patient has been having increasing weakness and fatigue. Patient is feeling short of breath. Patient denies any chest pain. There is no coughing. There are no fevers or chills. This morning he got up to go to the bathroom and while he was sitting on the toilet he suddenly felt very lightheaded and like he was given a pass out. Patient did not suddenly pass out but states that he came close to it. Patient brought in for evaluation. Patient was hypoxic upon EMS arrival and is requiring oxygen. Patient has no history of needing oxygen in the past. Past History Travel History Traveled to [place] past 21 day No Medical History Any Pertinent Medical History? see below for history Neurological: TIA EENT: NONE Cardiovascular: hypertension, hyperlipidemia Respiratory: NONE Gastrointestinal: GERD Hepatic: NONE Renal: chronic kidney disease Musculoskeletal: NONE Psychiatric: NONE Endocrine: hypothyroidism Blood Disorders: NONE Cancer(s): NONE OTOLARYNGOLOGY SURGEON/Reproductive: NONE History of MRSA: No History of VRE: No History of CDIFF: No Surgical History Surgical History: non-contributory Psychosocial History What is your primary language Maltese Tobacco Use: Quit <30 days ago ETOH Use: denies use Illicit Drug Use: denies illicit drug use Family History Hx Contributory? No Review of Systems Review of Systems Constitutional: Reports: no symptoms. EENTM: Reports: no symptoms. Respiratory: Reports: see HPI, short of breath. Cardiovascular: Reports: no symptoms. GI: Reports: no symptoms. Genitourinary: Reports: no symptoms. Musculoskeletal: Reports: see HPI, back pain, joint pain. Skin: Reports: no symptoms. Neurological/Psychological: Reports: no symptoms. All Other Systems: Reviewed and Negative Physical Exam Physical Exam General Appearance: well developed/nourished, alert, awake, anxious, moderate distress Head: atraumatic, normal appearance Eyes: Bilateral: PERRL, EOMI. Ears, Nose, Throat: normal pharynx, normal ENT inspection, hearing grossly normal Neck: normal inspection, supple, full range of motion, no midline tenderness Respiratory: normal breath sounds, no respiratory distress, lungs clear Cardiovascular: regular rate/rhythm, normal peripheral pulses Gastrointestinal: normal bowel sounds, soft, non-tender Back: normal inspection, normal range of motion Extremities: normal inspection, normal capillary refill, normal range of motion, no edema Psychiatric: awake, alert, oriented x 3 Cranial Nerves: normal hearing, normal speech, PERRL Motor/Sensory: no motor/sensory deficits Core Measures ACS in differential dx? Yes CVA/TIA Diagnosis: No Sepsis Present: No Sepsis Focused Exam Completed? No Progress Differential Diagnosis: AMI, orthostatic syncope, sick sinus syndrome Plan of Care: Orders Procedure Date/time Status CBC WITHOUT DIFFERENTIAL 03/16 600 Active BASIC ELECTROLYTES PLUS BUN&CR 03/16 600 Active Heart Healthy Diet 03/15 D Active Patient Data 03/15 1209 Active ED Holding Orders 03/15 1205 Active Admit to inpatient 03/15 1205 Active Vital Signs 03/15 1205 Active Code Status 03/15 1205 Active ECHOCARDIOGRAM 03/15 120 Active Telemetry/Counter Top Assembler 03/15 09 Active URINALYSIS 03/15 09 Complete TROPONIN LEVEL 03/15 920 Complete COMPREHENSIVE METABOLIC PANEL 03/15 920 Complete CBC WITHOUT DIFFERENTIAL 03/15 920 Complete EKG 03/15 920 Active Laboratory Tests 03/15/18 1130: Urinalysis MOD H, Urine Color YEL, Urine Clarity CLEAR, Urine pH 6.0, Ur Specific [place] 1.025, Urine Protein 30 H, Urine Ketones NEG, Urine Nitrite NEG, Urine Bilirubin NEG, Urine Urobilinogen 0.2, Ur Leukocyte Esterase NEG, Ur Microscopic SEDIMENT EXAMINED, Urine RBC RARE, Urine Hemoglobin SMALL H, Urine Glucose NEG 03/15/18 0930: Anion Gap 16, Estimated GFR 49 L, BUN/Creatinine Ratio 23, Glucose 143 H, Calcium 9.2, Total Bilirubin 1.6 H, AST 44, ALT 23, Alkaline Phosphatase 71, Troponin I 0.12 *H, Total Protein 6.5, Albumin 3.7, Globulin 2.8, Albumin/ Globulin Ratio 1.3, CBC w Diff MAN DIFF ORDERED, RBC 4.90, MCV 89.6, MCH 30.2, MCHC 33.7, RDW 13.8, MPV 9.8, Gran % 90.3 H, Lymphocytes % 4.1 L, Monocytes % 5.0, Eosinophils % 0.1, Basophils % 0.5, Absolute Granulocytes 18.3 H, Absolute Lymphocytes 0.8 L, Absolute Monocytes 1.0 H, Absolute Eosinophils 0, Absolute Basophils 0.1, Platelet Estimate ADEQUATE, Normocytic RBCs VERIFIED, Normochromic RBCs VERIFIED Diagnostic Imaging: Viewed by Me: CT Scan. Discussed w/RAD: CT Scan. Radiology Impression: PATIENT: MARY RAYMOND PRESENT AGE: 77 PATIENT ACCOUNT NO: [id number] : [birth year] LOCATION: [facility] ORDERING PHYSICIAN: Mary Chester MD SERVICE DATE: 03/15/18 EXAM TYPE: CAT - CT CERV SPINE WO IV CONTRAST; CT HEAD WO IV CONTRAST EXAMINATION: CT HEAD WITHOUT CONTRAST CT CERVICAL SPINE WITHOUT CONTRAST CLINICAL INFORMATION: Trauma. COMPARISON: None TECHNIQUE: CT of the head and cervical spine were performed without intravenous contrast. Multiplanar reformats were rendered and reviewed. DLP: 1025 mGy-cm. FINDINGS: CT head: There is no intracranial hemorrhage, extra-axial collection, or calvarial fracture. There is no mass, mass effect, or CT evidence of large territory infarction. There is mild diffuse brain parenchymal volume loss with prominence of the ventricles and sulci. The visualized paranasal sinuses are clear. The mastoids and middle ear cavities are clear. CT cervical spine: There is grade 1 anterolisthesis of C2 on C3 and C3 on C4 with trace retrolisthesis of C4 on C5 and C5-C6. The craniovertebral junction is intact. No cervical spine fracture is seen. There is age indeterminate superior endplate compression deformities at T2 and T3. No retropulsion. There are multilevel degenerative changes with intervertebral disc height loss, endplate spurring, uncovertebral and facet arthropathy, and disc osteophyte complexes. Disc height loss is most advanced at C3-C4, C4-C5, C5-C6, and C6-C7. The lung apices are grossly clear. The main pulmonary artery is dilated likely reflecting pulmonary arterial hypertension. No neck mass or fluid collection is seen. IMPRESSION: CT head: - No acute intracranial abnormality. CT cervical spine: - No cervical spine fracture. Multilevel degenerative appearing listhesis. Advanced spondylotic changes. - Age-indeterminate compression fractures at T2 and T3 with less than 50% height loss and no retropulsion. DICTATED BY: Jeremiah Elaine MD DATE/TIME DICTATED:03/15/181049 DOUBLE HEAD MACHINE OPERATOR:AMRITA DATE/TIME TRANSCRIBED:03/15/181049 CONFIDENTIAL, DO NOT COPY WITHOUT APPROPRIATE AUTHORIZATION. <Electronically signed in Other Vendor System> SIGNED BY: Jeremiah Elaine MD 03/15/18 1293 Initial ED EKG: NSR, RBBB, nonspecific ST T wave chg Prior EKG: unchanged Rhythm Strip: normal sinus rhythm Comments: D/W DR. LEAL AND DR. UMESH ACLVO WILLCONSULT ON PT. OKAY FOR TELE. Departure Departure Disposition: STILL A PATIENT Condition: Stable Clinical Impression Primary Impression: Elevated troponin Secondary Impressions: Compression fracture, Syncope Referrals: Tiffanie VARGAS,Marino Jade (PCP/Family) Departure Forms: Customer Survey General Discharge Information Admission Note Spoke With: Veronica Bay MD Documentation of Exam: Documentation of any treatments & extenuating circumstances including Concerns Regarding Discharge (functional status, medication knowledge or non-compliance, living conditions, etc.) that warrant an admission rather than observation: [ Telemetry monitoring, cardiology consultation, serial enzymes, PT consultation, pain control] Critical Care Note Critical Care Note Critical Care Time: mins: (90 MIN)
[2018-03-15 09:37] LABS: ABSOLUTE BASOPHIL COUNT 0.1 /CUMM (0.0-0.2); ABSOLUTE EOSINOPHIL COUNT 0 /CUMM (0.0-0.7); ABSOLUTE GRANULOCYTE CT 18.3 /CUMM (1.4-6.5); ABSOLUTE LYMPH COUNT 0.8 /CUMM (1.2-3.4); BASOPHIL % 0.5 % (0.0-2.0); EOSINOPHIL % 0.1 % (0-5); HEMATOCRIT 43.9 % (42-52); MEAN CORPUSCULAR HGB 30.2 PG (27.0-31.0); MEAN CORPUSCULAR HGB CONC 33.7 G/DL (33.0-37.0); MEAN CORPUSCULAR VOLUME 89.6 FL (80.0-94.0); MEAN PLATELET VOLUME 9.8 FL (7.4-10.4); PLATELET COUNT 150 /CUMM (130-400); RBC DISTRIBUTION WIDTH 13.8 % (11.5-14.5); WHITE BLOOD CELL COUNT 20.3 /CUMM (4.8-10.8)
[2018-03-15 09:39] LABS: GRANULOCYTE % 90.3 % (42.2-75.2)
--- NOTE | 2018-03-15 11:03 | CT SCAN REPORT ---
EXAMINATION: CT HEAD WITHOUT CONTRAST CT CERVICAL SPINE WITHOUT CONTRAST CLINICAL INFORMATION: Trauma. COMPARISON: None TECHNIQUE: CT of the head and cervical spine were performed without intravenous contrast. Multiplanar reformats were rendered and reviewed. DLP: 1025 mGy-cm. FINDINGS: CT head: There is no intracranial hemorrhage, extra-axial collection, or calvarial fracture. There is no mass, mass effect, or CT evidence of large territory infarction. There is mild diffuse brain parenchymal volume loss with prominence of the ventricles and sulci. The visualized paranasal sinuses are clear. The mastoids and middle ear cavities are clear. CT cervical spine: There is grade 1 anterolisthesis of C2 on C3 and C3 on C4 with trace retrolisthesis of C4 on C5 and C5-C6. The craniovertebral junction is intact. No cervical spine fracture is seen. There is age indeterminate superior endplate compression deformities at T2 and T3. No retropulsion. There are multilevel degenerative changes with intervertebral disc height loss, endplate spurring, uncovertebral and facet arthropathy, and disc osteophyte complexes. Disc height loss is most advanced at C3-C4, C4-C5, C5-C6, and C6-C7. The lung apices are grossly clear. The main pulmonary artery is dilated likely reflecting pulmonary arterial hypertension. No neck mass or fluid collection is seen. IMPRESSION: CT head: - No acute intracranial abnormality. CT cervical spine: - No cervical spine fracture. Multilevel degenerative appearing listhesis. Advanced spondylotic changes. - Age-indeterminate compression fractures at T2 and T3 with less than 50% height loss and no retropulsion.
--- NOTE | 2018-03-15 11:39 | CT SCAN REPORT ---
EXAMINATION: CT ABDOMEN, CHEST, AND PELVIS WITHOUT CONTRAST CLINICAL INFORMATION: Trauma. COMPARISON: CT abdomen and pelvis 08/02/2016. TECHNIQUE: CT acquisition of the chest, abdomen, and pelvis is obtained without contrast FINDINGS: CHEST: There is no focal consolidation, pleural effusion, or pneumothorax. Heart is normal in size without a pericardial effusion. There is coronary artery atherosclerotic calcification. There is no mediastinal, hilar, or axillary adenopathy. No significant soft tissue findings within the chest. The partially visualized upper abdomen is unremarkable. There are bilateral old healed rib fractures. There are multiple indeterminate age compression fractures throughout the thoracic spine including a severe compression fracture at T7 with slight inferior endplate retropulsion and a vertebral body burst fracture at T12 with posterior vertebral body retropulsion and 70% vertebral body height loss at T12. Additional indeterminate age mild superior endplate compression fractures at the T2, T3, and T4 levels and a moderate superior plate compression fracture at T5. ABDOMEN/PELVIS: The liver, spleen, adrenal glands, gallbladder, and pancreas are normal. Multiple bilateral renal cysts. There is bilateral renal atrophy. There is extensive aortoiliac atherosclerotic calcification. Scattered colonic diverticulosis without acute diverticulitis. There is a periampullary duodenal diverticulum. The large and small bowel are normal in caliber without evidence of mechanical obstruction. No focal inflammatory changes adjacent to the large or the small bowel. The appendix is normal. There is no free air and there is no intra-abdominal free fluid. No mesenteric or retroperitoneal adenopathy. The pelvic viscera are normal. No pelvic adenopathy. No free fluid within the pelvis. There is transitional anatomy. For the purposes of this report S1 is partially lumbarized and shares a rudimentary disc with S2. Using this counting system there are age-indeterminate compression fractures at the L1, L2, and L4 levels. There is an age-indeterminate sacral fracture at the S3-S4 level. Severe degenerative changes involving the left femoral acetabular joint with chronic deformity of the left femoral head and acetabulum. IMPRESSION: - There are multiple indeterminate age compression fractures throughout the thoracic spine including a severe compression fracture at T7 with slight inferior endplate retropulsion and a vertebral body burst fracture at T12 with posterior vertebral body retropulsion and 70% vertebral body height loss. Additional indeterminate age mild superior endplate compression fractures at the T2, T3, and T4 levels and a moderate superior endplate compression fracture at T5. - There are also age-indeterminate compression fractures at the L1, L2, and L4 levels. There is transitional anatomy. For the purposes of this report S1 is partially lumbarized and shares a rudimentary disc with S2. - There is an age-indeterminate mildly displaced sacral fracture at the S3-S4 level. - There are multiple old healed bilateral rib fractures. No definite acute rib fractures. - No evidence of solid or hollow visceral injury within the chest, abdomen, or pelvis. - Severe degenerative changes involving the left femoral acetabular joint with chronic deformity of the left femoral head and acetabulum. - Bilateral renal atrophy and multiple bilateral renal cysts. Colonic diverticulosis without acute diverticulitis. There is a periampullary duodenal diverticulum.
--- NOTE | 2018-03-15 13:07 | History & Physical ---
MarcAngelaanjanaan 03/15/18 1307: General Information and HPI MD Statement: I have seen and personally examined MARY RAYMOND and documented this H&P. The patient is a 77 year old M who presented with a patient stated chief complaint of [fall]. Source of Information: patient, old records Exam Limitations: no limitations History of Present Illness: 77-year-old gentleman with past medical history of TIA, was on DAPT last year, BPH,HTN not on BP medications ckd mutiple fall and fx on the spine and sacral area, came to the hospital with chief complaint of weakness and fall. Patient reported that he is using cane and sometimes rolling walker for ambulation and on Monday he had a mechanical fall and fell onto his buttocks, after slipping with a cane, no chest pain, shortness of breath, dizziness, palpitations, syncope reported at that point. Since he has multiple relatives in medical field he was prescribed mid back for the pain in his sacral area. Today after having the loose bowel movement in the morning he was trying to move from his bathroom to bedroom and he reported that he felt weakness in his right leg and fell on the floor. Patient had minor occipital trauma from the previous fall but no trauma this time to the head. Patient reported that he has a chronic weakness on the left leg however he is started having weakness on the right leg as well. At the moment patient denies any chest pain, nausea, vomiting, palpitation, headache, dizziness. He reportedly had mild numbness on the lateral side of the right foot and also twitching of the right eye. Vital signs are ED were notable for requirement of 2 L oxygen with no fevers and a stable blood pressure Labs notable for WBC 20.3, sodium 136, HCO3 21, creatinine 1.4, BUN 33, glucose 143, troponin 0 0.12, vitamin D and PTH WNL , UA small hemoglobin, protein 30, a specific gravity is 1.025 EKG is questionable for A. fib with PACs and PVCs, RBBB, no acute ST-T elevation abdomen ct IMPRESSION: - There are multiple indeterminate age compression fractures throughout the thoracic spine including a severe compression fracture at T7 with slight inferior endplate retropulsion and a vertebral body burst fracture at T12 with posterior vertebral body retropulsion and 70% vertebral body height loss. Additional indeterminate age mild superior endplate compression fractures at the T2, T3, and T4 levels and a moderate superior endplate compression fracture at T5. - There are also age-indeterminate compression fractures at the L1, L2, and L4 levels. There is transitional anatomy. For the purposes of this report S1 is partially lumbarized and shares a rudimentary disc with S2. - There is an age-indeterminate mildly displaced sacral fracture at the S3-S4 level. - There are multiple old healed bilateral rib fractures. No definite acute rib fractures. - No evidence of solid or hollow visceral injury within the chest, abdomen, or pelvis. - Severe degenerative changes involving the left femoral acetabular joint with chronic deformity of the left femoral head and acetabulum. - Bilateral renal atrophy and multiple bilateral renal cysts. Colonic diverticulosis without acute diverticulitis. There is a periampullary duodenal diverticulum. head and cervical spine ct IMPRESSION: CT head: - No acute intracranial abnormality. CT cervical spine: - No cervical spine fracture. Multilevel degenerative appearing listhesis. Advanced spondylotic changes. - Age-indeterminate compression fractures at T2 and T3 with less than 50% height loss and no retropulsion. Allergies/Medications Allergies: Coded Allergies: Alpha 2 Adrenergic Agonist (kidney issues 03/21/17) Home Med list Aspirin (Ecotrin*) 81 MG TABLET.DR 1 TAB PO DAILY STROKE PREVENTION Atorvastatin Calcium 20 MG TABLET 1 TAB PO QPM CHOLESTEROL (Reported) Cholecalciferol (Vitamin D3) (Vitamin D) 2,000 UNIT TABLET 1 TAB PO DAILY SUPPLEMENT (Reported) Citalopram Hydrobromide (Citalopram HBr) 10 MG TABLET 1 TAB PO DAILY MENTAL HEALTH (Reported) Clopidogrel Bisulfate (Plavix) 75 MG TABLET 1 TAB PO DAILY STROKE PREVENTION PLEASE TAKE FOR 7 DAYS ONLY AND THEN STOP Dutasteride (Avodart) 0.5 MG CAPSULE 1 CAP PO DAILY PROSTATE (Reported) Folic Acid 1 MG TABLET 1 TAB PO DAILY SUPPLEMENT (Reported) Losartan Potassium 25 MG TABLET 1 TAB PO DAILY BP (Reported) Pantoprazole Sodium 40 MG TABLET.DR 1 TAB PO DAILY GI (Reported) Solifenacin Succinate (Vesicare) 10 MG TABLET 1 TAB PO QPM BLADDER (Reported) Terazosin HCl 1 MG CAPSULE 1 CAP PO QPM PROSTATE (Reported) Vitamin B Complex (B Complex) 1 EACH TABLET 1 TAB PO DAILY VITAMIN SUPPORT ( Reported) Past History Travel History Traveled to [place] past 21 day No Medical History Neurological: TIA EENT: NONE Cardiovascular: hypertension, hyperlipidemia Respiratory: NONE Gastrointestinal: GERD Hepatic: NONE Renal: chronic kidney disease Musculoskeletal: NONE Psychiatric: NONE Endocrine: hypothyroidism Blood Disorders: NONE Cancer(s): NONE 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 spouse Primary Language: Frisian ETOH Use: denies use Illicit Drug Use: denies illicit drug use Functional Ability ADLs Independent: dressing, eating, toileting, bathing. Ambulation: walker IADLs Independent: shopping, housework, finances, food prep, telephone, transportation , medication admin. Review of Systems Review of Systems Constitutional: Reports: see HPI. Exam & Diagnostic Data Last 24 Hrs of Vital Signs/I&O Vital Signs Date Time Temp Pulse Resp B/P B/P Pulse O2 O2 Flow FiO2 Mean Ox Delivery Rate 03/15 1059 98.8 64 18 177/95 98 Room Air 03/15 0943 56 136/90 95 Nasal 2.0L Cannula 03/15 0910 96.9 88 22 161/90 87 Room Air Intake & Output 03/15 1600 03/15 0800 03/15 0000 Intake Total Output Total Balance Patient 65.771 kg Weight Physical Exam General Appearance Alert, Oriented X3, Cooperative Skin mutile skin eccymosis in the left and right hands Cardiovascular Regular Rate, Normal S1, Normal S2 Lungs Clear to Auscultation Abdomen Normal Bowel Sounds, Soft, No Tenderness Neurological Normal Speech, Sensation Intact, Cranial Nerves 3-12 NL, Reflexes 2 +, both LEs are 4/5 , negative babisky, sensation NL Extremities trace ankle edema Assessment/Plan Assessment: 77-year-old gentleman with past medical history of TIA, was on DAPT last year, BPH,HTN not on BP medications ckd mutiple fall and fx on the spine and sacral area, came to the hospital with chief complaint of weakness and fall. Patient reported that he is using cane and sometimes rolling walker for ambulation and on Monday he had a mechanical fall and fell onto his buttocks, after slipping with a cane, no chest pain, shortness of breath, dizziness, palpitations, syncope reported at that point. Patient reported that he has a chronic weakness on the left leg however he is started having weakness on the right leg as well. At the moment patient denies any chest pain, nausea, vomiting, palpitation, headache, dizziness. He reportedly had mild numbness on the lateral side of the right foot and also twitching of the right eye. Vital signs are ED were notable for requirement of 2 L oxygen with no fevers and a stable blood pressure Labs notable for WBC 20.3, sodium 136, HCO3 21, creatinine 1.4, BUN 33, glucose 143, troponin 0 0.12, vitamin D and PTH WNL , UA small hemoglobin, protein 30, a specific gravity is 1.025 EKG is questionable for A. fib with PACs and PVCs, RBBB, no acute ST-T elevation abdomen ct IMPRESSION: - There are multiple indeterminate age compression fractures throughout the thoracic spine including a severe compression fracture at T7 with slight inferior endplate retropulsion and a vertebral body burst fracture at T12 with posterior vertebral body retropulsion and 70% vertebral body height loss. Additional indeterminate age mild superior endplate compression fractures at the T2, T3, and T4 levels and a moderate superior endplate compression fracture at T5. - There are also age-indeterminate compression fractures at the L1, L2, and L4 levels. There is transitional anatomy. For the purposes of this report S1 is partially lumbarized and shares a rudimentary disc with S2. - There is an age-indeterminate mildly displaced sacral fracture at the S3-S4 level. - There are multiple old healed bilateral rib fractures. No definite acute rib fractures. - No evidence of solid or hollow visceral injury within the chest, abdomen, or pelvis. - Severe degenerative changes involving the left femoral acetabular joint with chronic deformity of the left femoral head and acetabulum. - Bilateral renal atrophy and multiple bilateral renal cysts. Colonic diverticulosis without acute diverticulitis. There is a periampullary duodenal diverticulum. head and cervical spine ct IMPRESSION: CT head: - No acute intracranial abnormality. CT cervical spine: - No cervical spine fracture. Multilevel degenerative appearing listhesis. Advanced spondylotic changes. - Age-indeterminate compression fractures at T2 and T3 with less than 50% height loss and no retropulsion. Assessment Multiple falls Positive troponin History of CKD History of BPH History of hypertension not on any medications Plan Admit to telemetry Patient already got high-dose aspirin once we will continue with his statin and low-dose aspirin no need for heparin per cardiology Trend troponin and get another EKG to rule out A. fib x3 Echocardiogram is ordered IV hydration 500 cc normal saline 1 bag Check orthostatics Check for any urinary and bowel incontinence which is an indicator for spinal cord compression PT evaluation Continue finasteride and Vesicare Patient is outpatient biphosphonate therapy Blood cultures 2 to rule out any infection Continue omeprazole DNR/DNI, DVT prophylaxis is mechanical and subcu heparin, heart healthy diet, Tylenol for pain As Ranked By This Provider Problem List: 1. Elevated troponin Core Measures/Misc (07/16) Acute Coronary Syndrome ACS Diagnosis: Yes Comment positive trops type 2 mi Congestive Heart Failure Congestive Heart Failure Diagnosis No Cerebrovascular Accident CVA/TIA Diagnosis: No VTE (View Protocol) VTE Risk Factors Age>40 No Mechanical VTE Prophylaxis d/t N/A MechProphylax Ordered No VTE Pharm Prophylaxis d/t NA PharmProphylax ordered Sepsis (View protocol) Sepsis Present: No Dashawn Suárez 03/15/18 1348: Attending MD Review Statement Attending Statement Attending MD Statement: examined this patient, discuss w/resident/PA/VISITOR SERVICES ASSOCIATE, agreed w/resident/PA/VISITOR SERVICES ASSOCIATE, discussed with family, reviewed EMR data (avail), discussed with nursing, discussed with case mgmt, reviewed images, amended to note Attending Assessment/Plan: 77 o/m with pmh of htn/tia on antiplatlet therapy with loop recorder and no afib found. Also h/o multiple compression fractures chronic. Came with mechanical fall. No chest pain, did not pass out. Remembers event of fall. Had one episode of diarrhea. Has no power at home. Hypoxic on arrival. 2L nc 96%, WBC 20 on medrol pack at home prescribed by physician o/p. Na 136, Cr 1.4 CKD baseline. positive trop 0.12. CT spine with chronic compression fractures. Chest CT and head CT negative. Patient admitted here in telemetry for near syncope and elevataed cardic enzymes r/o ACS, hyponatremia 2/2 IVVD, mechanical fall with chronic compression fractures. Obtain ECHO, serial cardiac enzymes, ivf, Monitor NA, WBC Cardiology consult, PT evaluation.
--- NOTE | 2018-03-15 14:32 | Cons- Cardiology ---
General Information and HPI Consulting Request Date of Consult: 03/15/18 Requested By: Dashawn Suárez MD Reason for Consult: Elevated troponin History of Present Illness: The patient is a 77-year-old male with history of hypertension, TIA, and hypothyroidism who presents after a fall. The patient has had recent weakness, and had several falls. EMS was called after he fell and was unable to get up. He had a previous fall 3 days ago. He denies any syncope. No chest pain. No shortness of breath. No nausea or vomiting. No lightheadedness or dizziness. No diaphoresis. He has a history of frequent premature atrial contractions, however there is no documentation of any definite history of atrial fibrillation and the patient denies any history of atrial fibrillation. Allergies/Medications Allergies: Coded Allergies: Alpha 2 Adrenergic Agonist (kidney issues 03/21/17) Home Med List: Aspirin (Ecotrin*) 81 MG TABLET.DR 1 TAB PO DAILY STROKE PREVENTION Atorvastatin Calcium 20 MG TABLET 1 TAB PO QPM CHOLESTEROL (Reported) Cholecalciferol (Vitamin D3) (Vitamin D) 2,000 UNIT TABLET 1 TAB PO DAILY SUPPLEMENT (Reported) Citalopram Hydrobromide (Citalopram HBr) 10 MG TABLET 1 TAB PO DAILY MENTAL HEALTH (Reported) Clopidogrel Bisulfate (Plavix) 75 MG TABLET 1 TAB PO DAILY STROKE PREVENTION PLEASE TAKE FOR 7 DAYS ONLY AND THEN STOP Dutasteride (Avodart) 0.5 MG CAPSULE 1 CAP PO DAILY PROSTATE (Reported) Folic Acid 1 MG TABLET 1 TAB PO DAILY SUPPLEMENT (Reported) Losartan Potassium 25 MG TABLET 1 TAB PO DAILY BP (Reported) Pantoprazole Sodium 40 MG TABLET.DR 1 TAB PO DAILY GI (Reported) Solifenacin Succinate (Vesicare) 10 MG TABLET 1 TAB PO QPM BLADDER (Reported) Terazosin HCl 1 MG CAPSULE 1 CAP PO QPM PROSTATE (Reported) Vitamin B Complex (B Complex) 1 EACH TABLET 1 TAB PO DAILY VITAMIN SUPPORT ( Reported) Current Medications: Current Medications Sig/Akhil Start time Last Medication Dose Route Stop Time Status Admin Acetaminophen 650 MG Q6P PRN 03/15 1415 AC 03/15 PO 1746 Aspirin 81 MG DAILY 03/16 0900 CAN PO Aspirin 0 .STK-MED ONE 03/15 1110 DC PO Aspirin 325 MG ONCE ONE 03/15 1030 DC 03/15 PO 03/15 1031 1106 Aspirin Buffered 81 MG DAILY 03/16 0900 AC PO Atorvastatin Calcium 20 MG QPM 03/15 2100 AC PO Calcium/Vitamin D 500 MG DAILY 03/16 0900 AC PO Citalopram 10 MG DAILY 03/16 0900 AC Hydrobromide PO Finasteride 5 MG DAILY 03/16 0900 AC PO Folic Acid 1 MG DAILY 03/16 0900 AC PO Heparin Sodium 5,000 UNIT Q8 03/15 2200 AC (Porcine) SC Magnesium Sulfate 1 GM Q2H 03/15 1330 DC 03/15 Dextrose/Water 100 ML IV 03/15 1729 1621 Multivitamins 1 TAB DAILY 03/16 09 AC PO Omeprazole 20 MG DAILY AC 03/16 0700 AC PO Oxybutynin Chloride 5 MG QPM 03/15 2100 CAN PO Sodium Chloride 1,000 ML Q20H 03/15 1415 CAN IV 03/16 1014 Sodium Chloride 500 ML BOLUS ONE 03/15 1415 AC 03/15 IV 03/16 0014 1505 Solifenacin 10 MG AT BEDTIME 03/15 2100 AC PO Review of Systems Review of Systems: No fever. No chills. No rash. No tremor. All other systems were reviewed, and were noted to be negative. 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 spouse Primary Language: Yakut ETOH Use: denies use Illicit Drug Use: denies illicit drug use Functional Ability ADLs Independent: dressing, eating, toileting, bathing. Ambulation: walker IADLs Independent: shopping, housework, finances, food prep, telephone, transportation , medication admin. Exam & Diagnostic Data Vital Signs and I&O Vital Signs Date Time Temp Pulse Resp B/P B/P Pulse O2 O2 Flow FiO2 Mean Ox Delivery Rate 03/15 1449 97.8 63 20 130/84 92 Nasal 2.0L Cannula 03/15 1434 Nasal 2.0L Cannula 03/15 1059 98.8 64 18 177/95 98 Room Air 03/15 0943 56 136/90 95 Nasal 2.0L Cannula 03/15 0910 96.9 88 22 161/90 87 Room Air Intake & Output 03/15 0800 03/15 0000 03/14 0803/14 0000 Intake Total Output Total 200 Balance -200 Output, Urine 200 Patient 139 lb Weight Weight Bed scale Measurement Method Physical Exam: Gen: The patient is in no acute distress HEENT: Normal nose, ears, and oropharynx. Pupils equal bilaterally. Conjunctiva normal. Neck: Supple with no JVD, no masses, and no thyromegaly Lungs: Clear to auscultation with normal respiratory effort Heart: RRR, S1, S2, 1 out of 6 systolic murmur. No peripheral edema, 2+ pulses in the lower extremities bilaterally Abdomen: Soft, nontender, no masses. No hepatomegaly. No splenomegaly Extremities: No clubbing or cyanosis. Normal muscle strength in the upper and lower extremities Skin: Normal skin turgor with no skin ulcers or lesions noted. Neuro: Cranial nerves intact. Sensation intact Psych: Alert and oriented x 3 with appropriate affect Labs/Bryce Results: Laboratory Tests 03/15 03/15 03/15 1900 1409 1130 Chemistry Troponin I (<0.11 ng/ml) Cancelled 0.16 *H Urines Urinalysis MOD H Urine Color (YEL,AMB,STR) YEL Urine Clarity (CLEAR) CLEAR Urine pH (5.0 - 8.0) 6.0 Ur Specific [place] (1.001 - 1.035) 1.025 Urine Protein (NEG,<30 MG/DL) 30 H Urine Ketones (NEG) NEG Urine Nitrite (NEG) NEG Urine Bilirubin (NEG) NEG Urine Urobilinogen (0.1 - 1.0 EU/dl) 0.2 Ur Leukocyte Esterase (NEG) NEG Ur Microscopic SEDIMENT EXAMINED Urine RBC (0 - 5 /HPF) RARE Urine Hemoglobin (NEG) SMALL H Urine Glucose (N MG/DL) NEG 03/15 930 Chemistry Sodium (137 - 145 mmol/L) 136 L Potassium (3.5 - 5.1 mmol/L) 4.9 Chloride (98 - 107 mmol/L) 100 Carbon Dioxide (22 - 30 mmol/L) 20 L Anion Gap (5 - 16) 16 BUN (9 - 20 mg/dL) 33 H Creatinine (0.7 - 1.2 mg/dL) 1.4 H Estimated GFR (>60 ml/min) 49 L BUN/Creatinine Ratio (7 - 25 %) 23 Glucose (65 - 99 mg/dL) 143 H Calcium (8.4 - 10.2 mg/dL) 9.2 Magnesium (1.6 - 2.3 mg/dL) 1.5 L Total Bilirubin (0.2 - 1.3 mg/dL) 1.6 H AST (17 - 59 U/L) 44 ALT (21 - 72 U/L) 23 Alkaline Phosphatase (< 127 U/L) 71 Troponin I (<0.11 ng/ml) 0.12 *H Total Protein (6.3 - 8.2 g/dL) 6.5 Albumin (3.5 - 5.0 g/dL) 3.7 Globulin (1.9 - 4.2 gm/dL) 2.8 Albumin/Globulin Ratio (1.1 - 2.2 %) 1.3 25-OH Vitamin D Total (30 - 100 ng/ml) 46.2 PTH Intact (18.4 - 80.1 pg/ML) 67.8 Hematology CBC w Diff MAN DIFF ORDERED WBC (4.8 - 10.8 /CUMM) 20.3 H RBC (4.70 - 6.10 /CUMM) 4.90 Hgb (14.0 - 18.0 G/DL) 14.8 Hct (42 - 52 %) 43.9 MCV (80.0 - 94.0 FL) 89.6 MCH (27.0 - 31.0 PG) 30.2 MCHC (33.0 - 37.0 G/DL) 33.7 RDW (11.5 - 14.5 %) 13.8 Plt Count (130 - 400 /CUMM) 150 MPV (7.4 - 10.4 FL) 9.8 Gran % (42.2 - 75.2 %) 90.3 H Lymphocytes % (20.5 - 51.1 %) 4.1 L Monocytes % (1.7 - 9.3 %) 5.0 Eosinophils % (0 - 5 %) 0.1 Basophils % (0.0 - 2.0 %) 0.5 Absolute Granulocytes (1.4 - 6.5 /CUMM) 18.3 H Absolute Lymphocytes (1.2 - 3.4 /CUMM) 0.8 L Absolute Monocytes (0.10 - 0.60 /CUMM) 1.0 H Absolute Eosinophils (0.0 - 0.7 /CUMM) 0 Absolute Basophils (0.0 - 0.2 /CUMM) 0.1 Platelet Estimate (ADEQUATE) ADEQUATE Normocytic RBCs VERIFIED Normochromic RBCs VERIFIED Diagnostic Data EKG Results EKG tracings independently reviewed, and reveals normal sinus rhythm at 66 with right bundle branch block and premature atrial complexes Other Results CT scan of the chest: - There are multiple indeterminate age compression fractures throughout the thoracic spine including a severe compression fracture at T7 with slight inferior endplate retropulsion and a vertebral body burst fracture at T12 with posterior vertebral body retropulsion and 70% vertebral body height loss. Additional indeterminate age mild superior endplate compression fractures at the T2, T3, and T4 levels and a moderate superior endplate compression fracture at T5. - There are also age-indeterminate compression fractures at the L1, L2, and L4 levels. There is transitional anatomy. For the purposes of this report S1 is partially lumbarized and shares a rudimentary disc with S2. - There is an age-indeterminate mildly displaced sacral fracture at the S3-S4 level. - There are multiple old healed bilateral rib fractures. No definite acute rib fractures. - No evidence of solid or hollow visceral injury within the chest, abdomen, or pelvis. - Severe degenerative changes involving the left femoral acetabular joint with chronic deformity of the left femoral head and acetabulum. - Bilateral renal atrophy and multiple bilateral renal cysts. Colonic diverticulosis without acute diverticulitis. There is a periampullary duodenal diverticulum. CT scan of the head and cervical spine: CT head: - No acute intracranial abnormality. CT cervical spine: - No cervical spine fracture. Multilevel degenerative appearing listhesis. Advanced spondylotic changes. - Age-indeterminate compression fractures at T2 and T3 with less than 50% height loss and no retropulsion. Echocardiogram 03/23/17: 1. This was a technically difficult examination. 2. Minimal aortic sclerosis is present with no valvular stenosis or insufficiency. 3. Mitral leaflet thickening is present with minimal mitral insufficiency. 4. There is no pericardial fluid present. 5. The left ventricular chamber size and systolic function appear normal. 6. Mild enlargement of the right heart chambers is present with mild tricuspid insufficiency and no significant pulmonary hypertension. Minimal pulmonic insuffciiency is also noted. 7. 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 8. No obvious embolic sources were identified on this study. If clinically indicated, a PATRICK would better exclude potential embolic sources. Assessment/Plan Assessment/Plan 77-year-old male with history of hypertension and TIA presenting after multiple mechanical falls. No reported syncope. He is noted to have a mild troponin elevation with no history of chest pain. Plan: * Monitor on telemetry for possible arrhythmias * Continue to monitor serial troponin * Continue aspirin and Plavix * Continue other cardiac medications * Check orthostatics * PT evaluation Consult Acknowledgment - Thank you for your consult request.
[2018-03-15 14:49] VITALS: BP 130/84
[2018-03-15 22:18] VITALS: BP 140/88
[2018-03-16 06:00] VITALS: BP 146/80
--- NOTE | 2018-03-16 07:09 | PN- Housestaff ---
Jeffery VARGAS,[facility] 03/16/18 0709: Subjective Follow-up For: Syncope Elevated Troponins Tele-Events Since Last Visit: SB/NSR with HR 48-61. No overnight events. Subjective: Patient was seen and examined at bedside. States feeling well. Denies any complaints of dyspnea or chest pain. No complaints at this time. Review of Systems Constitutional: Reports: no symptoms. Objective Last 24 Hrs of Vital Signs/I&O Vital Signs Date Time Temp Pulse Resp B/P B/P Pulse O2 O2 Flow FiO2 Mean Ox Delivery Rate 03/16 0600 97.9 58 20 146/80 95 Nasal Cannula 03/15 2234 Nasal 2.0L Cannula 03/15 2218 97.7 63 20 140/88 96 Nasal 2.0L Cannula 03/15 1449 97.8 63 20 130/84 92 Nasal 2.0L Cannula 03/15 1434 Nasal 2.0L Cannula 03/15 1059 98.8 64 18 177/95 98 Room Air 03/15 0943 56 136/90 95 Nasal 2.0L Cannula 03/15 0910 96.9 88 22 161/90 87 Room Air Intake & Output 03/16 1600 03/16 0800 03/16 0000 Intake Total 550 120 Output Total 675 350 Balance -125 -230 Intake, IV 350 Intake, Oral 200 120 Output, Urine 675 350 Patient 150 lb Weight Physical Exam General Appearance: Alert, Oriented X3, Cooperative, No Acute Distress Skin: No Rashes, No Breakdown Skin Temp/Moisture Exam: Warm/Dry Sepsis Skin Exam (color): Normal for Ethnicity HEENT: Atraumatic Cardiovascular: Normal S1, Normal S2, No Murmurs Lungs: Clear to Auscultation, Normal Air Movement Abdomen: Soft, No Tenderness Neurological: Normal Speech Extremities: No Edema Assessment/Plan Assessment: 77-year-old gentleman with past medical history of TIA, was on DAPT last year, BPH,HTN not on BP medications ckd mutiple fall and fx on the spine and sacral area, came to the hospital with chief complaint of weakness and fall. Assessment: 1. Near Syncope 2. Elevated Troponins 3. 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 History of Hypertension not on any meds 5. History of BPH 6. History of Falls Plan: * Troponins have peaked. * Continue aspirin and statin * Appreciate cardio input * Echocardiogram - pending. * PT/OT eval * Would likely require STR * Continue multivitamins, folic acid * Continue home meds: Vesicare and Finasteride. * Diet: Heart Healthy * DVT Prophylaxis: SC Heparin * Code: DNR/DNI Problem List: 1. Elevated troponin Pain Ratin Pain Location: none Pain Goal: Remain pain free Pain Plan: none Tomorrow's Labs & Rationales: cbc, bep Dashawn Suárez 03/16/18 1034: Attending MD Review Statement Attending Statement Attending MD Statement: examined this patient, discuss w/resident/PA/FLAVOR TANK TENDER, agreed w/resident/PA/FLAVOR TANK TENDER, discussed with family, reviewed EMR data (avail), discussed with nursing, discussed with case mgmt, reviewed images, amended to note Attending Assessment/Plan: Patient denies any new complaints. He does c/o pain in his hip and feels his lower extremities are weak. He has decreased range of motion which is subacute to chronic with severe degnerative changes present. He takes his medications from his family who are physicians. He denies urinary or bowel incontinence. He feels around his baseline. PT eval done for general physcial deconditoning and likely STR discharge. Would give referral to PCP at discharge. Pain control. Inform family.
[2018-03-16 08:15] LABS: ABSOLUTE BASOPHIL COUNT 0 /CUMM (0.0-0.2); ABSOLUTE EOSINOPHIL COUNT 0.1 /CUMM (0.0-0.7); ABSOLUTE GRANULOCYTE CT 11.9 /CUMM (1.4-6.5); ABSOLUTE LYMPH COUNT 1.1 /CUMM (1.2-3.4); ABSOLUTE MONOCYTE COUNT 1.4 /CUMM (0.10-0.60); BASOPHIL % 0.1 % (0.0-2.0); EOSINOPHIL % 0.6 % (0-5); GRANULOCYTE % 82.5 % (42.2-75.2); HEMATOCRIT 39.8 % (42-52); MEAN CORPUSCULAR HGB 29.8 PG (27.0-31.0); MEAN CORPUSCULAR HGB CONC 32.8 G/DL (33.0-37.0); MEAN CORPUSCULAR VOLUME 90.9 FL (80.0-94.0); MEAN PLATELET VOLUME 10.5 FL (7.4-10.4); PLATELET COUNT 145 /CUMM (130-400); RBC DISTRIBUTION WIDTH 14.3 % (11.5-14.5); RED BLOOD CELL CT 4.37 /CUMM (4.70-6.10); WHITE BLOOD CELL COUNT 14.4 /CUMM (4.8-10.8)
--- NOTE | 2018-03-16 08:19 | Patient Discharge Instructions ---
Discharge Instructions General Discharge Information You were seen/treated for: Near Syncope Elevated Troponins Special Instructions: Please follow up with your PCP and woodworker within one week of discharge. Diet Continue normal diet: Yes Recommended Diet: Heart Healthy Activity Full Activity/No Limits: Yes Acute Coronary Syndrome Inclusion Criteria At DC or during hospital stay patient has or had the following: ACS DIAGNOSIS No Discharge Core Measures Meds if any: Prescribed or Continued at Discharge Meds if any: NOT Prescribed or Continued at Discharge Congestive Heart Failure Inclusion Criteria At DC or during hospital stay patient has or had the following: CHF DIAGNOSIS No Discharge Core Measures Meds if any: Prescribed or Continued at Discharge Meds if any: NOT Prescribed or Continued at Discharge Cerebrovascular accident Inclusion Criteria At DC or during hospital stay patient has or had the following: CVA/TIA Diagnosis No Discharge Core Measures Meds if any: Prescribed or Continued at Discharge Meds if any: NOT Prescribed or Continued at Discharge Venous thromboembolism Inclusion Criteria VTE Diagnosis No VTE Type NONE VTE Confirmed by (Test) NONE Discharge Core Measures - Per Current guidelines, there needs to be overlap - treatment for the first 5 days of Warfarin therapy. - If discharged on Warfarin prior to 5 days of - overlap therapy, the patient will need to be - assessed for post discharge needs including - *Post discharge parental anticoagulation - *Warfarin and/or parental anticoagulation education - *Follow up date to check INR post discharge At least 5 days overlap therapy as Inpatient No Meds if any: Prescribed or Continued at Discharge Note: Overlap Therapy is Warfarin and Anticoagulant Meds if any: NOT Prescribed or Continued at Discharge
--- NOTE | 2018-03-16 08:21 | Discharge Summary ---
Visit Information Visit Dates Admission Date: 03/15/18 Discharge Date: 03/16/18 Hospital Course Course Attending Physician: Dashawn Suárez MD Primary Care Physician: Marino Moreno MD Hospital Course: Mr Moore is a 77-year-old gentleman with past medical history of TIA, BPH, hypertension not on BP medications, CKD, mutiple falls in the past with chief complaints of weakness and fall. Below is a list of conditions he was seen and treated for 1. Fall 2. Elevated Troponins 3. 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 Inital lab work in the ED showed mildly elevated troponins. He was admitted to the telemetry unit for monitoring of arrhythmias. His troponins were trended till peaked (0.12---0.16---0.10). He had an echocardiogram which showed normal left ventricular chamber size and systolic function. Extensive imaging in the ED demonstrated multiple age indeterminate compression fractures along with severe degenerative changes of the left femoral acetabular joint. However, the patient denied any complaints of back pain and mentioned only being sore for where he hurt himself following the fall. He received physical therapy during his stay and was recommended discharge to [facility]. He should follow up with his polymer tester as an outpatient for further work up as necessary. He was discharged in stable disposition. Allergies: Coded Allergies: Alpha 2 Adrenergic Agonist (kidney issues 03/21/17) Significant Procedures: SERVICE DATE: 03/15/18-1205 EXAM TYPE: CARD - ECHOCARDIOGRAM FINDINGS Left Ventricle Normal size left ventricle. No obvious regional wall motion abnormalities. Normal left ventricular ejection fraction estimated at 55-60%. Right Ventricle Right ventricle not well visualized. Right Atrium Right atrium not well visualized, grossly normal. Left Atrium Mild left atrial dilatation. Mitral Valve Mitral valve thickened. Trace mitral regurgitation. Aortic Valve Trileaflet aortic valve. Diffuse thickening (sclerosis) of the aortic valve cusps without reduced excursion. No aortic stenosis. No aortic regurgitation. Tricuspid Valve Tricuspid valve not well visualized, grossly normal. Mild-to- moderate tricuspid regurgitation. Right ventricular systolic pressure estimated at 32 mmHg. Pulmonic Valve Pulmonic valve not well visualized. Pericardium No pericardial effusion. Great Vessels Aortic root and proximal ascending aorta not well visualized, grossly normal. CONCLUSIONS 1. This was a technically difficult examination 2. Mild to moderate aortic sclerosis is present with no valvular stenosis or insufficiency. 3. Mitral leaflet thickening is present with minimal mitral insufficiency and mild left atrial enlargement. 4. There is no pericardial fluid detected. 5. The left ventricular chamber size and systolic function appear normal. Accurate wall motion assessment was not possible due to the quality of the images obtained. 6. The right heart structures were not optimally assessed. Mild to moderate tricuspid insufficiency is present with no significant pulmonary hypertension. SERVICE DATE: 03/15/18 EXAM TYPE: CAT - CT CERV SPINE WO IV CONTRAST; CT HEAD WO IV CONTRAST FINDINGS: CT head: There is no intracranial hemorrhage, extra-axial collection, or calvarial fracture. There is no mass, mass effect, or CT evidence of large territory infarction. There is mild diffuse brain parenchymal volume loss with prominence of the ventricles and sulci. The visualized paranasal sinuses are clear. The mastoids and middle ear cavities are clear. CT cervical spine: There is grade 1 anterolisthesis of C2 on C3 and C3 on C4 with trace retrolisthesis of C4 on C5 and C5-C6. The craniovertebral junction is intact. No cervical spine fracture is seen. There is age indeterminate superior endplate compression deformities at T2 and T3. No retropulsion. There are multilevel degenerative changes with intervertebral disc height loss, endplate spurring, uncovertebral and facet arthropathy, and disc osteophyte complexes. Disc height loss is most advanced at C3-C4, C4-C5, C5-C6, and C6-C7. The lung apices are grossly clear. The main pulmonary artery is dilated likely reflecting pulmonary arterial hypertension. No neck mass or fluid collection is seen. IMPRESSION: CT head: - No acute intracranial abnormality. CT cervical spine: - No cervical spine fracture. Multilevel degenerative appearing listhesis. Advanced spondylotic changes. - Age-indeterminate compression fractures at T2 and T3 with less than 50% height loss and no retropulsion. SERVICE DATE: 03/15/18 EXAM TYPE: CAT - CT ABD & PELVIS W/O IV CONTRAS; CT CHEST WO IV CONTRAST FINDINGS: CHEST: There is no focal consolidation, pleural effusion, or pneumothorax. Heart is normal in size without a pericardial effusion. There is coronary artery atherosclerotic calcification. There is no mediastinal, hilar, or axillary adenopathy. No significant soft tissue findings within the chest. The partially visualized upper abdomen is unremarkable. There are bilateral old healed rib fractures. There are multiple indeterminate age compression fractures throughout the thoracic spine including a severe compression fracture at T7 with slight inferior endplate retropulsion and a vertebral body burst fracture at T12 with posterior vertebral body retropulsion and 70% vertebral body height loss at T12. Additional indeterminate age mild superior endplate compression fractures at the T2, T3, and T4 levels and a moderate superior plate compression fracture at T5. ABDOMEN/PELVIS: The liver, spleen, adrenal glands, gallbladder, and pancreas are normal. Multiple bilateral renal cysts. There is bilateral renal atrophy. There is extensive aortoiliac atherosclerotic calcification. Scattered colonic diverticulosis without acute diverticulitis. There is a periampullary duodenal diverticulum. The large and small bowel are normal in caliber without evidence of mechanical obstruction. No focal inflammatory changes adjacent to the large or the small bowel. The appendix is normal. There is no free air and there is no intra-abdominal free fluid. No mesenteric or retroperitoneal adenopathy. The pelvic viscera are normal. No pelvic adenopathy. No free fluid within the pelvis. There is transitional anatomy. For the purposes of this report S1 is partially lumbarized and shares a rudimentary disc with S2. Using this counting system there are age-indeterminate compression fractures at the L1, L2, and L4 levels. There is an age-indeterminate sacral fracture at the S3-S4 level. Severe degenerative changes involving the left femoral acetabular joint with chronic deformity of the left femoral head and acetabulum. IMPRESSION: - There are multiple indeterminate age compression fractures throughout the thoracic spine including a severe compression fracture at T7 with slight inferior endplate retropulsion and a vertebral body burst fracture at T12 with posterior vertebral body retropulsion and 70% vertebral body height loss. Additional indeterminate age mild superior endplate compression fractures at the T2, T3, and T4 levels and a moderate superior endplate compression fracture at T5. - There are also age-indeterminate compression fractures at the L1, L2, and L4 levels. There is transitional anatomy. For the purposes of this report S1 is partially lumbarized and shares a rudimentary disc with S2. - There is an age-indeterminate mildly displaced sacral fracture at the S3-S4 level. - There are multiple old healed bilateral rib fractures. No definite acute rib fractures. - No evidence of solid or hollow visceral injury within the chest, abdomen, or pelvis. - Severe degenerative changes involving the left femoral acetabular joint with chronic deformity of the left femoral head and acetabulum. - Bilateral renal atrophy and multiple bilateral renal cysts. Colonic diverticulosis without acute diverticulitis. There is a periampullary duodenal diverticulum. Disposition Summary Disposition Principal Diagnosis: Fall Elevated Troponins Old Compression Fractures Additional Diagnosis: Hypertension CKD BPH Discharge Disposition: home health services Discharge Instructions General Discharge Information Code Status: Do Not Resucitate/Intubat Patient's Diet: Heart Healthy Patient's Activity: As tolerated Follow-Up Instructions/Appts: Please follow up with your PCP and polymer tester within one week of discharge. Medications at Discharge Discharge Medications: Continue taking these medications: Atorvastatin Calcium (Atorvastatin Calcium) 20 MG TABLET 1 Tablet ORAL Every night Qty = 90 Comments: Last Taken: 03/15/18 Time: 2206 Solifenacin Succinate (Vesicare) 10 MG TABLET 1 Tablet ORAL Every night Qty = 90 Comments: Last Taken: 03/15/18 Time: 2314 Citalopram Hydrobromide (Citalopram HBr) 10 MG TABLET 1 Tablet ORAL DAILY Qty = 90 Comments: Last Taken: 03/16/18 Time: 1017 Folic Acid (Folic Acid) 1 MG TABLET 1 Tablet ORAL DAILY Qty = 90 Comments: Last Taken: 03/16/18 Time: 1016 Pantoprazole Sodium (Pantoprazole Sodium) 40 MG TABLET.DR 1 Tablet ORAL DAILY Qty = 90 Comments: NOT GIVEN Dutasteride (Avodart) 0.5 MG CAPSULE 1 Capsule ORAL DAILY Qty = 90 Comments: NOT GIVEN Terazosin HCl (Terazosin HCl) 1 MG CAPSULE 1 Capsule ORAL Every night Qty = 90 Comments: NOT GIVEN Losartan Potassium (Losartan Potassium) 25 MG TABLET 1 Tablet ORAL DAILY Qty = 90 Comments: NOTT GIVEN Cholecalciferol (Vitamin D3) (Vitamin D) 2,000 UNIT TABLET 1 Tablet ORAL DAILY Comments: Last Taken: 03/16/18 Time: 1016 Vitamin B Complex (B Complex) 1 EACH TABLET 1 Tablet ORAL DAILY Comments: NOT GIVEN Aspirin (Ecotrin*) 81 MG TABLET.DR 1 Tablet ORAL DAILY Qty = 30 Comments: Last Taken: 03/16/18 Time: 1000 Clopidogrel Bisulfate (Plavix) 75 MG TABLET 1 Tablet ORAL DAILY Qty = 7 Instructions: PLEASE TAKE FOR 7 DAYS ONLY AND THEN STOP Comments: NOT GIVEN Start taking the following new medications: Acetaminophen (Acetaminophen) 325 MG TABLET 2 Tablet ORAL EVERY SIX HOURS NEEDED as needed for Pain Qty = 60 No Refills Comments: Last Taken:03/16/18 Time:1200 Copies To: Tiffanie VARGAS,Marino Jade Attending MD Review Statement Documenting Attending: Kamini VARGAS,Dashawn
--- NOTE | 2018-03-16 11:33 | ECHOCARDIOGRAM REPORT ---
MARY RAYMOND Age: 77 : 1940 Gender: M Exam Date: 03/15/2018 19:22 Exam Location: [place] Ht (in): 65 Wt (lb): 145 BSA: 1.75 BP: 177 / 95 Ordering Physician: Terrell Tran MD Referring Physician: Vimal Baires MD Technologist: Radha Arias [facility] Room Number: [id number] Indications: STRUCTURAL HEART DISEASE Rhythm: Sinus Technical Quality: Poor, Very technically difficult study FINDINGS Left Ventricle Normal size left ventricle. No obvious regional wall motion abnormalities. Normal left ventricular ejection fraction estimated at 55-60%. Right Ventricle Right ventricle not well visualized. Right Atrium Right atrium not well visualized, grossly normal. Left Atrium Mild left atrial dilatation. Mitral Valve Mitral valve thickened. Trace mitral regurgitation. Aortic Valve Trileaflet aortic valve. Diffuse thickening (sclerosis) of the aortic valve cusps without reduced excursion. No aortic stenosis. No aortic regurgitation. Tricuspid Valve Tricuspid valve not well visualized, grossly normal. Mild-to- moderate tricuspid regurgitation. Right ventricular systolic pressure estimated at 32 mmHg. Pulmonic Valve Pulmonic valve not well visualized. Pericardium No pericardial effusion. Great Vessels Aortic root and proximal ascending aorta not well visualized, grossly normal. CONCLUSIONS 1. This was a technically difficult examination 2. Mild to moderate aortic sclerosis is present with no valvular stenosis or insufficiency. 3. Mitral leaflet thickening is present with minimal mitral insufficiency and mild left atrial enlargement. 4. There is no pericardial fluid detected. 5. The left ventricular chamber size and systolic function appear normal. Accurate wall motion assessment was not possible due to the quality of the images obtained. 6. The right heart structures were not optimally assessed. Mild to moderate tricuspid insufficiency is present with no significant pulmonary hypertension. Nanette Bernal M.D. (Electronically Signed) Final Date: 16 Mar 2018 11:32 MEASUREMENTS (Male / Female) Normal Values 2D ECHO LV Diastolic Diameter PLAX 3.9 cm 4.2 - 5.9 / 3.9 - 5.3 cm LV Systolic Diameter PLAX 2.0 cm 2.1 - 4.0 cm LV Fractional Shortening PLAX 48.7 % 25 - 46 % LV Ejection Fraction 2D Teich 80.7 % IVS Diastolic Thickness 1.2 cm LVPW Diastolic Thickness 1.2 cm LV Relative Wall Thickness 0.6 RV Internal Dim ED PLAX 3.4 cm 1.9 - 3.8 cm LVOT Diameter 2.0 cm Aortic Root Diameter 3.1 cm LA Systolic Diameter LX 3.9 cm 3.0 - 4.0 / 2.7 - 3.8 cm LA Volume 35.0 cm 18 - 58 / 22 - 52 cm Ascending Aorta Diameter 3.0 cm DOPPLER AV Peak Velocity 86.5 cm/s AV Peak Gradient 3.0 mmHg AV Mean Velocity 63.7 cm/s AV Mean Gradient 2.0 mmHg AV Velocity Time Integral 19.8 cm LVOT Peak Velocity 73.7 cm/s LVOT Peak Gradient 2.2 mmHg LVOT Mean Velocity 48.2 cm/s LVOT Mean Gradient 1.0 mmHg LVOT Velocity Time Integral 14.5 cm LVOT Stroke Volume 45.6 cm AV Area Cont Eq vti 2.3 cm AV Area Cont Eq pk 2.7 cm MV Peak Velocity 57.2 cm/s MV Peak Gradient 1.3 mmHg MV Mean Velocity 32.3 cm/s MV Mean Gradient 0.0 mmHg Mitral E Point Velocity 32.1 cm/s Mitral A Point Velocity 54.3 cm/s Mitral E to A Ratio 0.6 MV PHT Velocity 47.3 cm/s MV Deceleration [place] 207.0 cm/s MV Pressure Half Time 68.6 ms MV Area PHT 3.2 cm MV Deceleration Time 317.0 ms TR Peak Velocity 259.0 cm/s TR Peak Gradient 26.8 mmHg Right Atrial Pressure 5.0 mmHg Pulmonary Artery Systolic Pressu 31.8 mmHg Right Ventricular Systolic Press 31.8 mmHg PV Peak Velocity 88.2 cm/s PV Peak Gradient 3.1 mmHg PV Mean Velocity 57.0 cm/s PV Mean Gradient 2.0 mmHg PV Velocity Time Integral 14.4 cm LV E' Lateral Velocity 4.3 cm/s Mitral E to LV E' Lateral Ratio 7.5 LV E' Septal Velocity 7.8 cm/s Mitral E to LV E' Septal Ratio 4.1
--- NOTE | 2018-03-16 11:51 | PN- Cardiology ---
Subjective Subjective: The patient seems to be feeling somewhat better today. He denies any recurrent symptoms. He denies any chest discomfort, etc. Objective Vital Signs and I&Os Vital Signs Date Time Temp Pulse Resp B/P B/P Pulse O2 O2 Flow FiO2 Mean Ox Delivery Rate 03/16 0600 97.9 58 20 146/80 95 Nasal Cannula 03/15 2234 Nasal 2.0L Cannula 03/15 2218 97.7 63 20 140/88 96 Nasal 2.0L Cannula 03/15 1449 97.8 63 20 130/84 92 Nasal 2.0L Cannula 03/15 1434 Nasal 2.0L Cannula Intake & Output 03/16 1600 03/16 0800 03/16 0000 03/15 1600 03/15 0800 03/15 0000 Intake Total 550 120 Output Total 675 350 200 Balance -125 -230 -200 Intake, IV 350 Intake, Oral 200 120 Output, Urine 675 350 200 Patient 150 lb 139 lb Weight Weight Bed scale Measurement Method Current Medications: Current Medications Sig/Akhil Start time Last Medication Dose Route Stop Time Status Admin Acetaminophen 650 MG Q6P PRN 03/15 1415 AC 03/16 PO 1020 Aspirin 81 MG DAILY 03/16 0900 CAN PO Aspirin Buffered 81 MG DAILY 03/16 0900 AC 03/16 PO 1016 Atorvastatin Calcium 20 MG QPM 03/15 2100 AC 03/15 PO 2206 Calcium/Vitamin D 500 MG DAILY 03/16 0900 AC 03/16 PO 1016 Citalopram 10 MG DAILY 03/16 0900 AC 03/16 Hydrobromide PO 1017 Finasteride 5 MG DAILY 03/16 0900 AC 03/16 PO 1016 Folic Acid 1 MG DAILY 03/16 0900 AC 03/16 PO 1016 Heparin Sodium 5,000 UNIT Q8 03/15 2200 AC 03/16 (Porcine) SC 0512 Magnesium Sulfate 1 GM Q2H 03/15 1330 DC 03/15 Dextrose/Water 100 ML IV 03/15 1729 1621 Multivitamins 1 TAB DAILY 03/16 0900 AC 03/16 PO 1016 Omeprazole 20 MG DAILY AC 03/16 0700 AC 03/16 PO 0512 Oxybutynin Chloride 5 MG QPM 03/15 2100 CAN PO Sodium Chloride 1,000 ML Q20H 03/15 1415 CAN IV 03/16 1014 Sodium Chloride 500 ML BOLUS ONE 03/15 1415 DC 03/15 IV 03/16 0014 1505 Solifenacin 10 MG AT BEDTIME 03/15 2100 AC 03/15 PO 2314 Results Last 48 Hrs of Labs/Mics: Laboratory Tests 03/16/18 0703: Anion Gap 12, Estimated GFR 49 L, BUN/Creatinine Ratio 25.7 H, Total Bilirubin 1.1, Direct Bilirubin 0.3, AST 25, ALT 31, Alkaline Phosphatase 67, Total Protein 5.7 L, Albumin 3.1 L, CBC w Diff NO MAN DIFF REQ, RBC 4.37 L, MCV 90.9, MCH 29.8, MCHC 32.8 L, RDW 14.3, MPV 10.5 H, Gran % 82.5 H, Lymphocytes % 7.4 L, Monocytes % 9.4 H, Eosinophils % 0.6, Basophils % 0.1, Absolute Granulocytes 11.9 H, Absolute Lymphocytes 1.1 L, Absolute Monocytes 1.4 H, Absolute Eosinophils 0.1, Absolute Basophils 0 03/15/182007: Troponin I 0.10 03/15/18 1900: Troponin I Cancelled 03/15/18 1409: Troponin I 0.16 *H 03/15/18 1130: Urinalysis MOD H, Urine Color YEL, Urine Clarity CLEAR, Urine pH 6.0, Ur Specific [place] 1.025, Urine Protein 30 H, Urine Ketones NEG, Urine Nitrite NEG, Urine Bilirubin NEG, Urine Urobilinogen 0.2, Ur Leukocyte Esterase NEG, Ur Microscopic SEDIMENT EXAMINED, Urine RBC RARE, Urine Hemoglobin SMALL H, Urine Glucose NEG 03/15/18 0930: Anion Gap 16, Estimated GFR 49 L, BUN/Creatinine Ratio 23, Glucose 143 H, Calcium 9.2, Magnesium 1.5 L, Total Bilirubin 1.6 H, AST 44, ALT 23, Alkaline Phosphatase 71, Troponin I 0.12 *H, Total Protein 6.5, Albumin 3.7, Globulin 2.8 , Albumin/Globulin Ratio 1.3, 25-OH Vitamin D Total 46.2, PTH Intact 67.8, CBC w Diff MAN DIFF ORDERED, RBC 4.90, MCV 89.6, MCH 30.2, MCHC 33.7, RDW 13.8, MPV 9.8, Gran % 90.3 H, Lymphocytes % 4.1 L, Monocytes % 5.0, Eosinophils % 0.1, Basophils % 0.5, Absolute Granulocytes 18.3 H, Absolute Lymphocytes 0.8 L, Absolute Monocytes 1.0 H, Absolute Eosinophils 0, Absolute Basophils 0.1, Platelet Estimate ADEQUATE, Normocytic RBCs VERIFIED, Normochromic RBCs VERIFIED Assessment/Plan Assessment/Plan Assessment: 1. Multiple falls with history of presyncope 2. Mildly elevated troponin 3. History of hypertension 4. History of TIA Recommendations: -Review of echocardiogram shows no dramatic abnormalities. -Continue as per the medical team -Monitor while in hospital. -Discharge planning pending -At some point, the patient would likely benefit from a pharmacologic nuclear stress test at a later date as an outpatient. -PT evaluation pending Continue telemetry? No
[2018-03-16] MEDS ORDERED: ACETAMINOPHEN325 M2 PO (13:27)
[2018-03-16 14:40] VITALS: BP 147/75
== END 2018-03-16 17:18 | DRG 312 ==
LOC: ERH 08:57 → ERHI 12:05 → 1NO 12:05 → ENRESERV 12:55 → ENTRNSPT 14:04 → EDTRNSPT 14:13 → EDTRNSPTSTS 14:13 → 1NO 14:29 → CMPTRNSPT 14:39 → ENPENDDIS 03-16 15:31 → 1NO 03-16 17:18
PROVIDERS: Emergency Medicine; Internal Medicine
DX: R55 Syncope and collapse (principal); E87.1 Hypo-osmolality and hyponatremia; I12.9 Hypertensive chronic kidney disease with stage 1 through stage 4 chronic kidney disease, or unspecified chronic kidney disease; N18.9 Chronic kidney disease, unspecified; Z86.73 Personal history of transient ischemic attack (TIA), and cerebral infarction without residual deficits; E78.5 Hyperlipidemia, unspecified; K21.9 Gastro-esophageal reflux disease without esophagitis; E03.9 Hypothyroidism, unspecified; Z66 Do not resuscitate; R79.89 Other specified abnormal findings of blood chemistry; N40.0 Benign prostatic hyperplasia without lower urinary tract symptoms; M16.12 Unilateral primary osteoarthritis, left hip; W18.30XA Fall on same level, unspecified, initial encounter; Y92.002 Bathroom of unspecified non-institutional (private) residence as the place of occurrence of the external cause
CPT/HCPCS: 1NSP; 36415; 36592; 74176; 81001; 82436; 87040; 93005; 93010; 93306; 96374; 97110-GO; 97161-GP; 97530-GO; 99291; J1644; J3490; J7040